=== PATIENT | female | born 1975 | race Caucasian/White ===

== ENCOUNTER → 2017-06-08 12:00 | Outpatient (CLI) | payer OTHER, SELFPAY ==
[2017-06-08 13:06] LABS: Anion Gap 10 (5-15); BUN 12 mg/dL (7-18); BUN/Creat Ratio 15.4 RATIO (10-20); Calcium,Total 8.5 mg/dL (8.5-10.1); Chloride 106 mmol/L (98-107); Creatinine, Serum 0.78 mg/dL (0.55-1.02); EST Glomerular Filtration Rate 86 mL/min (>60); Est Glom Filt Rate - Afr Amer 104 mL/min (>60); Glucose 103 mg/dL (74-106); Magnesium 2.2 mg/dL (1.6-2.6); Potassium 3.6 mmol/L (3.5-5.1); Sodium Level 141 mmol/L (136-145); T4 Free Direct 1.13 ng/dL (0.76-1.46); Thyroid Stim Hormone (TSH) 0.77 uIU/mL (0.358-3.74)
[2017-06-09 08:51] LABS: Vitamin B12 315 pg/mL (211-911)
== END ==
PROVIDERS: Family Provider Family Medicine; PCP Family Medicine; Visit Provider Family Medicine
DX: R11.0 Nausea (principal); R20.2 Paresthesia of skin
CPT/HCPCS: 36415; 80048; 82607; 83735; 84439; 84443

== ENCOUNTER 2018-11-28 18:07 | Emergency (ER) | payer OTHER, SELFPAY ==
[2018-10-19 09:17] VITALS: BMI 38.2
[2018-11-28 18:08] VITALS: BP 133/74; PULSE 87; RESP 16; TEMP 36.6; O2SAT 98; BMI 41.9
--- NOTE | 2018-11-28 18:19 | EKG12_ITS ---
Test Reason : PALPITATIONS Blood Pressure : / mmHG Vent. Rate : 073 BPM Atrial Rate : 073 BPM P-R Int : 120 ms QRS Dur : 090 ms QT Int : 416 ms P-R-T Axes : 048 042 024 degrees QTc Int : 458 ms Normal sinus rhythm Normal ECG Confirmed by FIDEL KHAN, BIN ([id number]), hydroelectric station chief GENA CRUZ ([id number]) on 11/30/2018 11:56:13 AM Referred By: ORTIZ Confirmed By:BIN PARRA MD
--- NOTE | 2018-11-28 18:20 | ED.VIS.GEN ---
History of Present Illness Chief Complaint: Palpitations Informant: Patient Onset: Days Context: Gradual Onset Timing: Intermittent Current Severity: Moderate Maximum Severity: Moderate Narrative: The patient presents to the emergency department with intermittent sensation of palpitations. States is been going on since . She states she will get these symptoms where she felt like her heart is skipping a beat. She states that on last seconds. She denies any constant chest pain. It is nonradiating. Patient has been in her normal state of health. 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 She has no history of coronary vascular disease. She is on no medications. She states that she did have symptoms like this over the summer and they resolved. Prior similar symptoms: No Recent Illness/Hospitalization: No Past Medical History - Allergies and Home Meds Allergies/Adverse Reactions: Allergies acetaminophen [From Vicodin] Adverse Reaction (Verified 11/28/18 18:11) Vomiting hydrocodone bitartrate [From Vicodin] Adverse Reaction (Verified 11/28/18 18:11) Vomiting Primary Care Physician: Florian Colbert MD [Primary Care Provider] - Prior records reviewed: Yes Past Medical History: None Lives: With Family Smoking Status: Never smoker Review of Systems General: Denies: Chills, Fever, Sweats Eyes: Denies: Visual changes - bilaterally, Diplopia ENT: Denies: Rhinorrhea, Sore throat Cardiovascular: Reports: Palpitations Respiratory: Denies: Dyspnea, Cough, Dyspnea on exertion Gastrointestinal: Denies: Abdominal pain, Nausea, Vomiting, Diarrhea, Melena, Hematochezia Genitourinary: Denies: Dysuria, Hematuria, Frequency Musculoskeletal: Denies: Back pain, Extremity Pain Skin: Denies: Rash, Wounds Neurological: Denies: Headache, Weakness, Numbness Physical Exam Vital Signs/Narrative: Vital Signs Temp Pulse Resp BP Pulse Ox 11/28/18 18:08 97.9 F 87 16 133/74 H 98 Inital Vital Signs reviewed: Yes General: Well nourished, Well developed, No Acute Distress Head: Normocephalic, Atraumatic Eyes: Perrl, EOMI ENT: Moist mucous membranes, No rhinorrhea Neck: Supple, Nontender Cardiovascular: Regular rate, Regular rhythm, No murmurs Respiratory: No distress, CTA bilaterally, Chest nontender Abdomen: Soft, Nontender, Nondistended, Normal bowel sounds Back: Nontender, Normal Inspection Extremities: Nontender, No edema Skin: Normal color, No rash Neurological: Alert, Oriented x3, Cranial nerves II-XII grossly intact, Normal Strength, Normal Sensation Psychological: Normal affect, Normal Mood Diagnostic/Tx/Re-eval Chest X-Ray - ED: 2 View, Read by ED Physician, Normal, Heart, Lungs Clinical Impression(s) from Imaging Studies Chest X-Ray 11/28/18 18:45 IMPRESSION: No acute thoracic pathology. Electronically Signed: Layo Lundberg, at 18:53 EDT Tel , Service support , Abnormal Lab Results 11/28/18 11/28/18 18:35 18:35 WBC 10.5 RBC 4.51 Hgb 13.1 Hct 39.8 MCV 88.2 MCH 29.0 MCHC 32.9 RDW Std Deviation 42.7 RDW Coeff of Bebeto 13.2 Plt Count 264 MPV 10.0 Immature Gran % (Auto) 0.400 Neut % (Auto) 55.3 Lymph % (Auto) 35.1 Titus % (Auto) 6.1 Eos % (Auto) 2.4 Baso % (Auto) 0.7 Absolute Neuts (auto) 5.8 Absolute Lymphs (auto) 3.67 Nucleated RBC % 0 Sodium 138 Potassium 4.5 Chloride 107 Carbon Dioxide 26.0 Anion Gap 5 BUN 16 Creatinine 0.95 Estim Creat Clear Calc 60.39 Est GFR (MDRD) Af Amer 82 Est GFR (MDRD) Non-Af 68 BUN/Creatinine Ratio 16.8 Glucose 116 H Calcium 8.7 Troponin I < 0.015 - Rhythm Strip Rhythm Strip: Sinus Rhythm Rate: 80 Ectopy: None - EKG Initial EKG Interpretation: Sinus Rhythm, No Acute Injury Pattern Prior: No Prior - Medical Decision Making EKG was done on patient arrival. There is no acute ischemic change. There is normal axis and intervals. My suspicion is that the patient is likely having symptomatic PVCs. She was kept on a heart monitor and had no arrhythmia. Metabolic work-up was pursued and was unremarkable. Her cardiac enzymes are normal. At this point, the patient has no significant history of coronary vascular disease or other risk factor. She has a normal cardiac work-up. I do feel that she is safe for outpatient therapy. She is PE RC negative. I will give her outpatient cardiology follow-up as needed. She was counseled on concerning symptoms and reasons to return. The patient will be discharged home. Impression 1. Palpitations ED Disposition - Plan for ED Patient: Instructions: Premature Ventricular Contractions Referrals: Alberto Anne MD [STAFF PHYSICIAN] -
[2018-11-28] MEDS: Aspirin 81 MG TAB.CHEW 324 MG PO (18:34)
--- NOTE | 2018-11-28 18:45 | RAD_ITS ---
STUDY: X-RAY CHEST REASON FOR EXAM: Female, 43 years old. Chest pain TECHNIQUE: Frontal view of the chest COMPARISON: None. FINDINGS: The lungs are clear. There are no pleural effusions. There is no pneumothorax. The heart is normal in size. The visualized osseous structures are within normal limits. RAD/Chest 1 View (Portable) IMPRESSION: No acute thoracic pathology. Electronically Signed: Layo Lundberg, at 18:53 EDT Tel , Service support ,
[2018-11-28 18:50] LABS: Absolute Lymphocyte Count 3.67 X10^3/uL (0.83-4.51); Absolute Neutrophil Count 5.8 X10^3/uL (2.0-7.7); Basophil# 0.07 X10^3/uL; Basophil% 0.7 % (0-1); Eosinophil# 0.25 X10^3/uL; Eosinophils% 2.4 % (0-5); Hematocrit 39.8 % (37-47); Hemoglobin 13.1 g/dL (12.0-15.0); Lymphocyte # 3.67 X10^3/ul (4.0); Lymphocyte % 35.1 % (19-41); Mean Corp Hgb Conc 32.9 g/dL (32-36); Mean Corpuscular Volume 88.2 fL (81-99); Monocyte# 0.64 X10^3/uL; Monocyte% 6.1 % (0-10); NRBC Flagged by Analyzer 0 % (0-5); Neutrophil % 55.3 % (47-70); Platelet Count 264 K/mm3 (150-450); RBC Distribution Width CV 13.2 % (11.6-14.6); RBC Distribution Width SD 42.7 fl (35.1-43.9); Red Blood Count 4.51 M/mm3 (4.2-5.4); White Blood Count 10.5 K/mm3 (4.4-11.0)
[2018-11-28 19:08] LABS: Anion Gap 5 (5-15); BUN 16 mg/dL (7-18); BUN/Creat Ratio 16.8 RATIO (10-20); Calcium,Total 8.7 mg/dL (8.5-10.1); Chloride 107 mmol/L (98-107); Creatinine, Serum 0.95 mg/dL (0.55-1.02); EST Glomerular Filtration Rate 68 mL/min (>60); Est Glom Filt Rate - Afr Amer 82 mL/min (>60); Estimated Creatinine Clearance 60.39 ml/min; Glucose 116 mg/dL (74-106); Potassium 4.5 mmol/L (3.5-5.1); Sodium Level 138 mmol/L (136-145)
[2018-11-28 19:21] VITALS: BP 128/75; PULSE 81; RESP 14; O2SAT 95
== END 2018-11-28 19:25 | disposition home or self-care (01) ==
LOC: ED 18:45
PROVIDERS: Emergency Provider Emergency Medicine; Family Provider Family Medicine; PCP Family Medicine
DX: I49.3 Ventricular premature depolarization (principal); Z88.5 Allergy status to narcotic agent
CPT/HCPCS: 71045; 80048; 84484; 85025; 93005; 99285

== ENCOUNTER → 2019-11-07 08:49 | Outpatient (CLI) | payer OTHER, SELFPAY ==
[2019-11-07 08:13] VITALS: BMI 40.4
[2019-11-07 12:25] LABS: Absolute Lymphocyte Count 2.71 X10^3/uL (0.83-4.51); Absolute Neutrophil Count 4.4 X10^3/uL (2.0-7.7); Basophil# 0.07 X10^3/uL; Basophil% 0.9 % (0-1); Eosinophil# 0.23 X10^3/uL; Eosinophils% 2.9 % (0-5); Hemoglobin 13.5 g/dL (12.0-15.0); Lymphocyte # 2.71 X10^3/ul (4.0); Lymphocyte % 34.5 % (19-41); Mean Corp Hgb Conc 32.1 g/dL (32-36); Mean Corpuscular Hgb 28.8 pg (27.0-32.0); Mean Corpuscular Volume 89.7 fL (81-99); Mean Platelet Vol. 10.7 fl (6.2-12.0); Monocyte# 0.47 X10^3/uL; NRBC Flagged by Analyzer 0 % (0-5); Neutrophil # 4.35 X10^3/uL (2.7-7.7); Neutrophil % 55.4 % (47-70); Platelet Count 275 K/mm3 (150-450); RBC Distribution Width CV 13.5 % (11.6-14.6); Red Blood Count 4.68 M/mm3 (4.2-5.4); White Blood Count 7.9 K/mm3 (4.4-11.0)
[2019-11-07 12:50] LABS: AST(SGOT) 11 U/L (15-37); Alanine Aminotransfer ALT/SGPT 19 U/L (13-56); Albumin, Serum 3.9 g/dL (3.2-5.0); Alkaline Phosphatase 47 U/L (45-117); Anion Gap 7 (5-15); BUN 14 mg/dL (7-18); BUN/Creat Ratio 15.8 RATIO (10-20); Calcium,Total 8.7 mg/dL (8.5-10.1); Chloride 107 mmol/L (98-107); Cholesterol 163 mg/dL (200); Creatinine, Serum 0.89 mg/dL (0.55-1.02); EST Glomerular Filtration Rate 73 mL/min (>60); Est Glom Filt Rate - Afr Amer 89 mL/min (>60); Globulin 3.8 g/dL (2.2-4.2); Glucose 107 mg/dL (74-106); High Density Lipoprotein 37 mg/dL; Protein, Total 7.7 g/dL (6.4-8.2); Sodium Level 138 mmol/L (136-145); T4 Free Direct 1.09 ng/dL (0.76-1.46); Thyroid Stim Hormone (TSH) 1.71 uIU/mL (0.358-3.74); Triglycerides 218 mg/dL; Very Low Density Lipoprotein 44 mg/dL (5-40)
== END ==
PROVIDERS: PCP Internal Medicine; Referring Provider Internal Medicine; Visit Provider Internal Medicine
DX: K58.0 Irritable bowel syndrome with diarrhea (principal); E66.01 Morbid (severe) obesity due to excess calories; Z68.41 Body mass index [BMI] 40.0-44.9, adult
CPT/HCPCS: 36415; 80053; 80061; 84439; 84443; 85025

== ENCOUNTER → 2020-01-30 10:48 | Outpatient (CLI) | payer OTHER, SELFPAY ==
[2019-11-07 08:13] VITALS: BMI 40.4
== END ==
PROVIDERS: PCP Internal Medicine; Referring Provider Nurse Practitioner Family; Visit Provider Nurse Practitioner Family
DX: Z20.828 Contact with and (suspected) exposure to other viral communicable diseases (principal)
CPT/HCPCS: 87635; C9803; U0003

== ENCOUNTER 2021-05-19 15:40 | Outpatient (CLI) | payer OTHER, SELFPAY ==
[2021-05-19 16:42] LABS: Absolute Lymphocyte Count 3.26 X10^3/uL (0.83-4.51); Absolute Neutrophil Count 4.8 X10^3/uL (2.0-7.7); Basophil# 0.08 X10^3/uL; Basophil% 0.9 % (0-1); Eosinophil# 0.18 X10^3/uL; Hematocrit 39.2 % (37-47); Hemoglobin 12.7 g/dL (12.0-15.0); Lymphocyte # 3.26 X10^3/ul (0.83-4.51); Mean Corp Hgb Conc 32.4 g/dL (32-36); Mean Corpuscular Volume 86.3 fL (81-99); Mean Platelet Vol. 10.4 fl (6.2-12.0); Monocyte# 0.48 X10^3/uL; Monocyte% 5.5 % (0-10); NRBC Flagged by Analyzer 0 % (0-5); Neutrophil # 4.78 X10^3/uL (2.7-7.7); Neutrophil % 54.4 % (47-70); Platelet Count 302 K/mm3 (150-450); RBC Distribution Width CV 13.8 % (11.6-14.6); RBC Distribution Width SD 43.4 fl (35.1-43.9); Red Blood Count 4.54 M/mm3 (4.2-5.4); White Blood Count 8.8 K/mm3 (4.4-11.0)
[2021-05-19 17:02] LABS: ALB/GLOB Ratio 1.1 RATIO (0.9-2.4); AST(SGOT) 15 U/L (15-37); Alanine Aminotransfer ALT/SGPT 18 U/L (13-56); Albumin, Serum 3.8 g/dL (3.2-5.0); Alkaline Phosphatase 52 U/L (45-117); Anion Gap 4 (5-15); BUN 15 mg/dL (7-18); BUN/Creat Ratio 16.9 RATIO (10-20); Calcium,Total 8.4 mg/dL (8.5-10.1); Chloride 110 mmol/L (98-107); Cholesterol 167 mg/dL (200); Creatinine, Serum 0.89 mg/dL (0.55-1.02); EST Glomerular Filtration Rate 73 mL/min (>60); Est Glom Filt Rate - Afr Amer 88 mL/min (>60); Globulin 3.6 g/dL (2.2-4.2); Glucose 93 mg/dL (74-106); High Density Lipoprotein 44 mg/dL; Potassium 3.9 mmol/L (3.5-5.1); Protein, Total 7.4 g/dL (6.4-8.2); Sodium Level 139 mmol/L (136-145); Thyroid Stim Hormone (TSH) 0.83 uIU/mL (0.358-3.74); Triglycerides 216 mg/dL; Very Low Density Lipoprotein 43 mg/dL (5-40)
== END 2021-05-19 23:59 | disposition home or self-care (01) ==
LOC: BIMLAB 15:41
PROVIDERS: PCP Internal Medicine; Referring Provider Physician Assistant; Visit Provider Physician Assistant
DX: Z00.00 Encounter for general adult medical examination without abnormal findings (principal); K21.9 Gastro-esophageal reflux disease without esophagitis; F41.9 Anxiety disorder, unspecified; Z13.220 Encounter for screening for lipoid disorders; Z13.29 Encounter for screening for other suspected endocrine disorder
CPT/HCPCS: 36415; 80053; 80061; 84443; 85025

== ENCOUNTER 2021-06-03 09:02 | Outpatient (CLI) | payer OTHER, SELFPAY ==
[2021-06-09 12:22] LABS: HPV APTIMA, High Risk Negative (Negative)
== END 2021-06-03 23:59 | disposition home or self-care (01) ==
LOC: LABSPEC 06-04 09:03
PROVIDERS: PCP Internal Medicine; Visit Provider Nurse Practitioner Women's Health
DX: Z12.4 Encounter for screening for malignant neoplasm of cervix (principal)
CPT/HCPCS: 87624; 88175; G0145

== ENCOUNTER → 2021-09-10 | Outpatient (CLI) | payer OTHER, SELFPAY ==
--- NOTE | 2021-09-10 12:20 | BI_ITS ---
MAMMOGRAPHY - BILATERAL SCREENING REASON FOR EXAM: Female, 46 years old. Routine annual screening examination. PERTINENT HISTORY: Non-contributory. TECHNIQUE: Digital bilateral breast bhargav (3D mammographic acquisition) in the CC and MLO projections. 2-D mediolateral oblique (MLO) and craniocaudad (CC) views of both breasts were obtained. CAD: Full Field Digital Mammography with Computer Added Detection was performed. COMPARISON: Comparison is made with prior examination dated 08/07/2016. FINDINGS: Breast Composition: The breasts are heterogeneously dense, which may obscure small masses. There are no dominant masses or suspicious calcifications. Stable small benign-appearing bilateral axillary lymph nodes. No other significant abnormalities are identified. There has been no significant change since the prior study. BI/SCRN MAMM (CAD)W/BHARGAV BILAT IMPRESSION: Stable bilateral screening mammogram. Yearly follow-up mammogram recommended. (A) ASSESSMENT CATEGORY: BIRADS Category 2: Benign. A letter regarding these results will be sent to the patient by the facility within 30 days. Approximately 10% of breast cancers are not detected by mammography. A normal mammogram should not delay biopsy of a clinically suspicious abnormality. [id number] Electronically Signed: Jaret Dumont MD at 13:24 EDT ,
== END | disposition home or self-care (01) ==
LOC: OPBI 12:18
PROVIDERS: PCP Internal Medicine; Referring Provider Nurse Practitioner Women's Health; Visit Provider Nurse Practitioner Women's Health
DX: Z12.31 Encounter for screening mammogram for malignant neoplasm of breast (principal)
CPT/HCPCS: 77063; 77067

== ENCOUNTER → 2023-02-19 | Outpatient (CLI) | payer OTHER, SELFPAY ==
--- NOTE | 2023-02-19 14:54 | BI_ITS ---
MAMMOGRAPHY - BILATERAL SCREENING 3-D TOMOSYNTHESIS REASON FOR EXAM: Female, 47 years old. Breast Cancer Screening PERTINENT HISTORY: No significant family history. TECHNIQUE: 2-D mammograms and 3-D Tomosynthesis of the breast (s) were performed. CAD was performed. COMPARISON: 09/10/2021 FINDINGS: The breast composition is heterogeneously dense that can obscure small breast masses. Scattered benign calcifications are seen. No dense spiculated masses or suspicious microcalcifications are identified. No architectural distortion is identified. There is no skin thickening or retraction. There has been no significant change since the prior study. BI/SCRN MAMM (CAD)W/BHARGAV BILAT IMPRESSION: No mammographic signs of malignancy. Routine yearly mammograms recommended. ASSESSMENT CATEGORY: BIRADS Category 1: Negative. A letter regarding these results will be sent to the patient by the facility within 30 days. FOLLOW UP RECOMMENDATION: Yearly follow up mammogram recommended. (A) Approximately 10% of breast cancers are not detected by mammography. A normal mammogram should not delay biopsy of a clinically suspicious abnormality. Electronically Signed: Rj Orozco MD at 9:01 EST ,
== END | disposition home or self-care (01) ==
LOC: OPBI 14:53
PROVIDERS: PCP Internal Medicine; Referring Provider Internal Medicine; Visit Provider Internal Medicine
DX: Z12.31 Encounter for screening mammogram for malignant neoplasm of breast (principal)
CPT/HCPCS: 77063; 77067

== ENCOUNTER 2023-03-25 08:59 | Day surgery (SDC) | payer OTHER, SELFPAY ==
[2023-03-25] MEDS: Lactated Ringers 1,000 ML 15 ML IV (09:31)
[2023-03-25 09:33] VITALS: BP 129/70; PULSE 78; RESP 18; TEMP 36.1; O2SAT 96; BMI 41.5
--- NOTE | 2023-03-25 10:43 | PCM.HP.STD ---
HPI - General General Date of Admission: 03/25/23 Date of Service: 03/25/23 Chief Complaint: Screening colonoscopy HPI Narrative WANDA HERNANDEZ, is a 47 F who presents today for screening colonoscopy. She is not having abdominal pain. She denied any cramping. She denied of any chest pain or shortness of breath. Overall she is in very good health. [facility], [facility] Medical History (Updated 03/23/23 @ 14:49 by Kaia Kulkarni) Back pain Daigle's palsy Chest pain Chronic diarrhea Colon cancer screening Diarrhea Difficulty balancing Family hx of colon cancer Gastric reflux Gastroenteritis due to food toxin Gestational diabetes Hay fever Health care maintenance Heartburn History of IBS Hypertension IBS (irritable bowel syndrome) Migraines Non-smoker Palpitation Skin mole Viral syndrome Wears glasses Home Medications loperamide 2 mg capsule (Imodium A-D) 2 mg PO Q6H PRN loose stool 11/07/19 [History Last Taken Unknown] blood pressure monitor #1 ea 05/19/21 [Rx Last Taken Unknown] hydroxyzine HCl 50 mg tablet 50 mg PO Q8H PRN anxiety #30 tabs 05/08/22 [Rx Last Taken Unknown] rizatriptan 10 mg tablet See Rx Instructions PO .COMPLEX #14 tabs 01/07/23 [Rx Last Taken Unknown] Allergy/AdvReac Type Severity Reaction Status Date / Time acetaminophen [From Vicodin] AdvReac Vomiting Verified 01/14/23 11:33 hydrocodone bitartrate AdvReac Vomiting Verified 01/14/23 11:33 [From Vicodin] Family History (Updated 01/14/23 @ 11:33 by Akiko Olivas) Grandfather Colon cancer, Onset Age: 80 Grandmother Cancer ovarian Father Diabetes Surgical History (Updated 01/14/23 @ 11:32 by Akiko Olivas) History of cholecystectomy Hx of section Hx of colonoscopy Social History household members: spouse, children and other details: Oldest Son - [place], [place] - 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, 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 [employer] number of children: 3 current occupational status: employed current occupation: [employer] Smoking Status: Never smoker alcohol intake: current alcohol intake frequency: holidays/special occasions only substance use type: does not use what type of physical activity do you participate in: none seatbelt use: always do you feel safe at home: Yes additional social history: - [employer] ROS Review of Systems ROS Unobtainable: other Constitutional Constitutional: Denies fatigue, fever(s), poor appetite, weight gain or weight loss ENT HEENT: Denies mouth lesions Cardiovascular Cardiovascular: Denies abdominal bloating, abdominal edema or abdominal pain Respiratory/Chest Respiratory/Chest: Denies change in mental status, change in phlegm color, chest congestion or chest tightness Gastrointestinal Gastrointestinal: Denies belching, bloating, change in bowel habits, change in stool character, chewing difficulty, coffee ground emesis, constipation, cramping, diarrhea, dyspepsia, dysphagia, early satiety, excessive flatus, fecal incontinence, heartburn, hematemesis, hematochezia, hemorrhoids, loose stools, melena, nausea, odynophagia, rectal bleeding, tenesmus, vomiting or weight changes Genitourinary Genitourinary: Denies abdominal discomfort, burning urination or itching Musculoskeletal Musculoskeletal: Reports as per HPI; Denies muscle weakness or myalgias Integumentary Integumentary: Denies jaundice Neurologic Neurologic: Denies lack of coordination or weakness Psychiatric Psychiatric: Denies confusion, depression, memory loss, mood swings, paranoia or suicidal ideation Endocrine Endocrinology: Denies systems reviewed and no addt'l complaints, except as documented Hematologic/Lymphatic Hematologic/Lymphatic: Denies anemia, easy bleeding, easy bruising or lymphadenopathy Allergic/Immunologic Allergic/Immunologic: Denies systems reviewed and no addt'l complaints, except as documented Vital Signs Vital Signs Vital Signs: 03/25/23 09:33 03/25/23 09:33 Temperature 97 F L Temperature Source Temporal Pulse Rate 78 Respiratory Rate 18 Respiratory Pattern Normal Blood Pressure 129/70 H Blood Pressure Mean 89 Blood Pressure Source Monitor Blood Pressure Position Semi-Fowlers Blood Pressure Location Right Arm Pulse Ox 96 Oxygen Delivery Method Room Air Weight Weight: 227 lb 6.4 oz Body Mass Index (BMI) 41.5 Physical Exam Const alert General Appearance: cooperative Orientation / Consciousness: oriented to person HEENT hearing grossly normal bilaterally Head and Scalp: normal to inspection Face and Sinus: face symmetric Nose: external nose normal Mouth: oral and palatal mucosa normal Eyes conjunctivae normal General Eye: normal appearance of both eyes Neck full ROM General: normal visual inspection Lymph Lymphatic: no lymphadenopathy noted Chest inspection of chest normal and palpation of chest normal Chest: symmetrical chest wall rise Resp normal respiratory effort Effort and Inspection: able to speak in complete sentences Cardio regular rate GI non-distended Percussion: normal to percussion Rectal Exam: deferred Neuro Speech: speech normal Gait (Neuro): normal gait Assessment & Plan Assessment/Plan (1) Encounter for screening for malignant neoplasm of colon: PLAN: She was explained alternatives, risk, benefits including not withstanding bleeding, infection, sepsis, perforation, need for emergent surgery and . She will have an ASA of 3.
[2023-03-25 11:05] VITALS: BP 113/62; BP 129/70; PULSE 71; RESP 16; TEMP 36.4; O2SAT 100
[2023-03-25 11:10] VITALS: BP 109/62; BP 129/70; PULSE 76; RESP 16; O2SAT 98
--- NOTE | 2023-03-25 11:12 | OP.CCLET_ITS ---
03/25/2023 Garfield Pearce MD [address] [place] [address] [place] [address] Re : Colonoscopy procedure for Matilde Vasquez Dear Dr. Pearce This procedure was performed on March. My impressions and recommendations are as follows: Impressions : - The entire examined colon is normal. - No specimens collected. Recommendations : - Discharge patient to home. - Resume previous diet. - Continue present medications. - Repeat colonoscopy in 10 years for screening purposes. My findings are described in the full procedure note, which is enclosed. If I can be of further assistance, please feel free to contact me at . Sincerely, Louie Vera, 03/25/2023 11:11:48 AM This report has been signed electronically.
--- NOTE | 2023-03-25 11:12 | OP.COLON_ITS ---
Patient Name: Matilde Vasquez Procedure Date: 03/25/2023 10:49 AM Date of : 1975 Age: 47 Procedure: Colonoscopy Indications: Screening for colorectal malignant neoplasm Providers: Louie Vera DO Referring MD: Louie Vera DO Medicines: Monitored Anesthesia Care Patient Profile: This is a 47 year old female. Refer to note in patient chart for documentation of history and physical. Last Colonoscopy: none. The patient's first colonoscopy is today. Complications: No immediate complications. Procedure: Pre-Anesthesia Assessment: - Prior to the procedure, a History and Physical was performed, and patient medications and allergies were reviewed. The patient is competent. The risks and benefits of the procedure and the sedation options and risks were discussed with the patient. All questions were answered and informed consent was obtained. Patient identification and proposed procedure were verified by the physician in the pre-procedure area. Mental Status Examination: alert and oriented. Airway Examination: normal oropharyngeal airway and neck mobility. Respiratory Examination: clear to auscultation. CV Examination: normal. Prophylactic Antibiotics: The patient does not require prophylactic antibiotics. Prior Anticoagulants: The patient has taken no anticoagulant or antiplatelet agents. ASA Grade Assessment: II - A patient with mild systemic disease. After reviewing the risks and benefits, the patient was deemed in satisfactory condition to undergo the procedure. The anesthesia plan was to use monitored anesthesia care (MAC). Immediately prior to administration of medications, the patient was re-assessed for adequacy to receive sedatives. The heart rate, respiratory rate, oxygen saturations, blood pressure, adequacy of pulmonary ventilation, and response to care were monitored throughout the procedure. The physical status of the patient was re-assessed after the procedure. After I obtained informed consent, the scope was passed under direct vision. Throughout the procedure, the patient's blood pressure, pulse, and oxygen saturations were monitored continuously. The Colonoscope was introduced through the anus and advanced to the cecum, identified by appendiceal orifice and ileocecal valve. The colonoscopy was performed without difficulty. The patient tolerated the procedure well. The quality of the bowel preparation was adequate. The ileocecal valve, appendiceal orifice, and rectum were photographed. Scope In: 10:49:55 AM Scope Withdrawal Time 0 hours 8 minutes 40 seconds Scope Out: 11:01:26 AM Total Procedure Duration Time 0 hours 11 minutes 31 seconds Findings: The perianal and digital rectal examinations were normal. The colon (entire examined portion) appeared normal. No additional abnormalities were found on retroflexion. Impression: - The entire examined colon is normal. - No specimens collected. Recommendation: - Discharge patient to home. - Resume previous diet. - Continue present medications. - Repeat colonoscopy in 10 years for screening purposes. Procedure Code(s): --- Professional --- G0121, Colorectal cancer screening; colonoscopy on individual not meeting criteria for high risk CPT copyright 2021 [employer]. All rights reserved. The codes documented in this report are preliminary and upon industrial safety and health manager review may be revised to meet current compliance requirements. Louie Vera DO 03/25/2023 11:11:48 AM This report has been signed electronically. Number of Addenda: 0 Note Initiated On: 03/25/2023 10:49 AM
[2023-03-25 11:15] VITALS: BP 111/64; BP 129/70; PULSE 71; RESP 166; O2SAT 98
[2023-03-25 11:20] VITALS: BP 114/66; BP 129/70; PULSE 64; RESP 16; TEMP 36.4; O2SAT 99
[2023-03-25 11:43] VITALS: BP 129/70
== END 2023-03-25 11:47 | disposition home or self-care (01) ==
LOC: EN 09:00 → AC 09:02
PROVIDERS: PCP Internal Medicine; Referring Provider Internal Medicine; Visit Provider Internal Medicine Gastroenterology
PROC: 0DJD8ZZ Inspection of Lower Intestinal Tract, Via Natural or Artificial Opening Endoscopic (ICD-10-PCS; CPT 45378; principal; 2023-03-25 10:10)
DX: Z12.11 Encounter for screening for malignant neoplasm of colon (principal); I10 Essential (primary) hypertension; K21.9 Gastro-esophageal reflux disease without esophagitis; Z90.49 Acquired absence of other specified parts of digestive tract; Z79.899 Other long term (current) drug therapy
CPT/HCPCS: 45378; J7120; J2405

== ENCOUNTER → 2023-07-15 | Outpatient (CLI) | payer OTHER, SELFPAY ==
[2023-07-15 16:44] LABS: Absolute Neutrophil Count 4.4 X10^3/uL (2.0-7.7); Basophil# 0.09 X10^3/uL; Basophil% 1.1 % (0-1); Eosinophil# 0.17 X10^3/uL; Hematocrit 39.6 % (37-47); Hemoglobin 12.8 g/dL (12.0-15.0); Lymphocyte % 37.9 % (19-41); Mean Corp Hgb Conc 32.3 g/dL (32-36); Mean Corpuscular Hgb 28.1 pg (27.0-32.0); Mean Platelet Vol. 10.2 fl (6.2-12.0); Monocyte# 0.56 X10^3/uL; Monocyte% 6.6 % (0-10); NRBC Flagged by Analyzer 0 % (0-5); Neutrophil % 52.2 % (47-70); Platelet Count 308 K/mm3 (150-450); RBC Distribution Width CV 13.7 % (11.6-14.6); RBC Distribution Width SD 43.4 fl (35.1-43.9); Red Blood Count 4.55 M/mm3 (4.2-5.4); White Blood Count 8.4 K/mm3 (4.4-11.0)
[2023-07-15 17:19] LABS: ALB/GLOB Ratio 1.1 RATIO (0.9-2.4); AST(SGOT) 21 U/L (15-37); Alanine Aminotransfer ALT/SGPT 27 U/L (13-56); Alkaline Phosphatase 47 U/L (45-117); Anion Gap 4 (5-15); BUN 13 mg/dL (7-18); BUN/Creat Ratio 12.7 RATIO (10-20); Calcium,Total 9.2 mg/dL (8.5-10.1); Chloride 106 mmol/L (98-107); Cholesterol 160 mg/dL (200); Creatinine, Serum 1.02 mg/dL (0.55-1.02); EST Glomerular Filtration Rate 61 mL/min (>60); Est Glom Filt Rate - Afr Amer 74 mL/min (>60); Globulin 3.7 g/dL (2.2-4.2); Glucose 92 mg/dL (74-106); High Density Lipoprotein 43 mg/dL; Potassium 4.3 mmol/L (3.5-5.1); Protein, Total 7.7 g/dL (6.4-8.2); Sodium Level 138 mmol/L (136-145); T4 Free Direct 1.13 ng/dL (0.76-1.46); Thyroid Stim Hormone (TSH) 0.54 uIU/mL (0.358-3.74); Triglycerides 182 mg/dL; Very Low Density Lipoprotein 36 mg/dL (5-40)
== END | disposition home or self-care (01) ==
LOC: BIMLAB 16:10
PROVIDERS: PCP Internal Medicine; Referring Provider Internal Medicine; Visit Provider Internal Medicine
DX: K52.9 Noninfective gastroenteritis and colitis, unspecified (principal); I10 Essential (primary) hypertension
CPT/HCPCS: 36415; 80053; 80061; 84439; 84443; 85025

== ENCOUNTER → 2023-07-19 | Outpatient (CLI) | payer OTHER, SELFPAY ==
[2023-07-24 19:07] LABS: Calprotectin, Stool 45 ug/g (0-120)
[2023-07-31 16:10] LABS: Pancreatic Elastase, Fecal 176 (>200)
== END | disposition home or self-care (01) ==
LOC: LABSPEC 15:04
PROVIDERS: PCP Internal Medicine; Referring Provider Internal Medicine; Visit Provider Internal Medicine
DX: K52.9 Noninfective gastroenteritis and colitis, unspecified (principal)
CPT/HCPCS: 82653; 83630; 83993

== ENCOUNTER → 2024-10-30 | Outpatient (CLI) | payer OTHER, SELFPAY ==
--- OUTSIDE RECORDS SUMMARY | 2024-10-30 11:20 | XMS RPT_ITS | CCD ---
Author Organization [facility] Care Team Providers Care Labor Expediter Name Role Phone Dr. Garfield Pearce Primary Care Provider 1([phone]) Dr. Garfield Pearce Referring Provider [phone])2 SALEEM Marshall Attending Provider Unavailab Dr. Garfield Mosquera Attending Provider [phone])2 Abelino HOWELL, NAZANIN Zavala Attending Provider 1(330 ) Garfield Pearce MD Primary Care Provider 1(3 [phone]) GARFIELD PEARCE Primary Care Unavailable BIN ACEVEDO Referring Unavailable GARFIELD PEARCE Primary Care Unavailable Dr. Garfield Pearce Primary Care Provider 1(33 0) Dr. Garfield Pearce Attending Provider [phone])2 Dr. Garfield Pearce Referring Provider [phone])2 Akiko Olivas Attending Provider Unavailable Dr. Louie Vera Attending Provider 1(330) Dr. Louie Vera Other Provider 1(330)- Dr. Garfield Pearce Primary Care Provider 1(33 0) Dr. Garfield Pearce Referring Provider 1(330)2 Dr. Louie Vera Attending Provider 1(330) Dr. Louie Vera Other Provider 1(330)- Dr. Garfield Pearce Attending Provider 1(330)2 Dr. Garfield Pearce Primary Care Provider 1(33 0) Dr. Garfield Pearce Referring Provider 1(330)2 Oleghe, Efewongbe Referring Unavailable Oleghe, Efewongbe Primary Care Unavailable Rosalva Casas Attending Unavailable Oleghe, Efewongbe Attending Unavailable Oleghe, Efewongbe Referring Unavailable Oleghe, Efewongbe Primary Care Unavailable Oleghe, Efewongbe Primary Care Unavailable Oleghe, Efewongbe Referring Unavailable YandelitzNichelle Attending Unavailable Oleghe, Efewongbe Referring Unavailable Oleghe, Efewongbe Primary Care Unavailable Rosalva Casas Attending Unavailable Portia KHAN, Dr. Merrill Primary Care Provider Portia KHAN, Dr. Merrill Referring Provider 1(33 0) Rosalva Rebolledo Attending Provider Portia KHAN, Dr. Merrill Attending Provider 1(33 0) Allergies Allergy Classification Reported Allergen(s) Allergy Type Date of Onset Reaction(s) Facility (6 sources) Acetaminophen Drug Allergy 09-08-2021 [facility] (7 sources) HYDROcodone; Translations: [hydrocodone bitartrate] Drug Allergy 09-08-2021 [facility] (1 source) Acetaminophen Drug Allergy 08-02-2024 [facility] Medications Current Medications Medication Drug Class(es) Dates Sig (Normalized) Sig (Original) Blood Pressure Monitor (5 sources) Start: 05-19-2021 Blood Pressure Monitor Active 0 .ROUTE .MEDSUPPLY May 19, 2021 4:36pm Check twice a day Start: 05-19-2021 Blood Pressure Monitor Active 0 .ROUTE .MEDSUPPLY 1 May 19, 2021 1:00am Check twice a day Start: 05-19-2021 Blood Pressure Monitor Active 0 .ROUTE .MEDSUPPLY 1 May 19, 2021 12:00am Check twice a day Blood Pressure Monitor kit (1 source) Start: 05-19-2021 Blood Pressure Monitor kit Active 0 .ROUTE .MEDSUPPLY 1 May 19, 2021 1:00am elevated blood pressure Check twice a day sulfamethoxazole 800 mg / trimethoprim 160 mg oral tablet (1 source) Dihydrofolate Reductase Inhibitor Antibacterial, Sulfonamide Antimicrobial Start: 07-26-2022 End: 07-31-2022 take 1 tablet by mouth twice daily sulfamethoxazole -trimethoprim (BACTRIM DS) 800-160 mg per tablet Take 1 tablet by mouth twice daily for 5 days. 10 tablet 0 07/26/2022 07/31/2022 Active Comment on above: Take 1 tablet by shon twice daily for 5 days. SUMAtriptan 100 mg oral tablet (20 sources) Serotonin-1b and Serotonin-1d Receptor Agonist Start: 04-02-2023 End: 02-23-2024 take 1 tablet by mouth every two hours Sumatriptan Succinate (Imitrex) 100 mg tablet Active 0 PO .COMPLEX 14 February 23, 2024 4:59pm take 1 tab at onset of headache; if no relief, may repeat 1 tab after at least 2 hrs; max = 2 tabs/24 hrs PO Start: 01-07-2023 End: 01-07-2023 Sumatriptan Succinate 100 mg tablet Discontinued mg PO January 07, 2023 12:00am January 07, 2023 3:15pm Start: 01-07-2023 End: 01-07-2023 Sumatriptan Succinate Discon tinued MG PO January 07, 2023 12:00am January 07, 2023 3:15pm Start: 11-07-2019 End: 03-24-2022 take 1 tablet by mouth every two hours Sumatriptan Succinate 100 mg tablet Discontinued 0 PO .COMPLEX 10 November 15, 2020 9:02am May 19, 2021 4:35pm take 1 tab at onset of headache; if no relief, may repeat 1 tab after at least 2 hrs; max = 2 tabs/24 hrs PO Tirzepatide (Weight Loss) (2 sources) Start: 10-30-2024 Tirzepatide (W eight Loss) (Zepbound) 2.5 mg/0.5 mL pen injector Active 2.5 mg SC EVERY WEEK 2 October 30, 2024 12:00am for 4 weeks Start: 11-04-2023 End: 02-23-2024 Tirzepatide (Weight Loss) (Z epbound) 2.5 mg/0.5 mL pen injector Discontinued 2.5 mg SC EVERY WEEK 2 November 04, 2023 12:00am February 23, 2024 4:41pm for 4 weeks Completed/Discontinued Medications Medication Drug Class(es) Dates Sig (Normalized) Sig (Original) acetaminophen 325 mg / oxyCODONE hydrochloride 5 mg oral tablet (6 sources) Opioid Agonist Start: 05-04-2014 End: 12-03-2017 Oxycodone-Acetamino phen 1 TABLET tablet Discontinued 1 - 2 {tbl} PO EVERY 6 HOURS NEEDED as needed for Pain May 04, 2014 1:00am December 03, 2017 3:37pm Start: 05-04-2014 End: 12-03-2017 take 1 tablet by mouth every six hours as needed Oxycodone-Acetaminophen Discontinued 1 - 2 TABLET PO EVERY 6 HOURS NEEDED May 04, 2014 1:00am December 03, 2017 3:37pm amoxicillin 875 mg / clavulanate 125 mg oral tablet (6 sources) Penicillin-class Antibacterial Start: 12-03-2017 End: 12-13-2017 Amoxicillin-Pot Clavulanate (Augmentin) 875-125 mg tablet Discontinued 1 {tbl} PO Q12H 20 10 0 December 03, 2017 12:00am December 12, 2017 12:00am December 13, 2017 12:08am Acute sinusitis, unspecified fexofenadine hydrochloride 180 mg oral tablet (6 sources) Histamine-1 Receptor Antagonist Start: 11-07-2019 End: 06-03-2021 take 1 tablet by mouth once daily Fexofenadine (Renuka Allergy) 180 mg tablet Discontinued 180 mg PO DAILY November 07, 2019 12:00am June 03, 2021 3:24pm hydrOXYzine hydrochloride 25 mg oral tablet (17 sources) Antihistamine Start: 02-23-2024 End: 04-19-2024 take 1 tablet by mouth every eight hours as needed for anxiety Hydroxyzine Hcl 25 mg tablet Discontinued 25 mg PO Q8H as needed for anxiety 90 0 February 23, 2024 5:00pm April 19, 2024 9:52am Start: 03-10-2021 End: 02-23-2024 take 1 tablet by mouth every eight hours as needed for anxiety Hydroxyzine Hcl 50 mg tablet Discontinued 50 mg PO Q8H as needed for anxiety 30 0 May 08, 2022 2:59pm February 23, 2024 5:00pm loperamide hydrochloride 2 mg oral capsule (6 sources) Opioid Agonist Start: 11-07-2019 End: 08-02-2024 take 1 capsule by mouth every six hours as needed Loperamide (Imodium A-D) 2 mg capsule Discontinued 2 mg PO EVERY 6 HOURS as needed for loose stool November 07, 2019 12:00am August 02, 2024 8:39am omeprazole 40 mg delayed release oral capsule (3 sources) Proton Pump Inhibitor Start: 04-15-2023 End: 02-23-2024 take 1 capsule by mouth once daily 30 minutes before breakfast Omeprazole 40 mg capsule,delayed release(DR/EC) Discontinued 40 mg PO DAILY 90 April 15, 2023 1:00am February 23, 2024 4:41pm Take 30 minutes before breakfast phenazopyridine hydrochloride 200 mg oral tablet (2 sources) Start: 07-26-2022 take 1 tablet by mouth every eight hours as needed phenazopyridine (PYRIDIUM) 200 mg tablet Take 1 tablet by mouth three times daily as needed. 6 tablet 0 07/26/2022 Active Comment on above: Take 1 tablet by shon three times daily as needed. predniSONE 50 mg oral tablet (6 sources) Start: 05-29-2021 End: 06-03-2021 take 1 tablet by mouth once daily Prednisone 50 mg tablet Discontinued 50 mg PO DAILY 5 May 29, 2021 1:00am June 03, 2021 3:24pm rizatriptan 10 mg oral tablet (5 sources) Serotonin-1b and Serotonin-1d Receptor Agonist Start: 01-07-2023 End: 04-02-2023 take 1 tablet by mouth every two hours Rizatriptan 10 mg tablet Discontinued 0 PO .COMPLEX 14 2 January 07, 2023 12:00am April 02, 2023 1:09pm take 1 tab at onset of headache; if no relief may repeat 1 tab after at least 2 hrs; max = 3 tabs/24 hr PO ubrogepant 50 mg oral tablet (5 sources) Start: 03-24-2022 End: 01-07-2023 take 1 tablet by mouth once as needed for headache Ubrogepant (Ubrelvy) 50 mg tablet Discontinued 50 mg PO ONCE as needed for migraine headache 10 3 March 24, 2022 1:00am January 07, 2023 2:47pm as a single dose; may repeat once in >=2 hours after first dose if needed Problems Problem Classification Problem Date Documented Da te Episodic/Chronic Abdominal pain (1 source) Left flank pain; Translations: [Unspecified abdominal pain] Episodic Anxiety disorders (16 sources) Anxiety; Translations: [Anxiety disorder, unspecified] Chronic Cardiac dysrhythmias (9 sources) Palpitations; Translations: [Palpitations] 01-07-2023 Episodic Esophageal disorders (7 sources) Gastroesophageal reflux disease; Translations: [Gastro-esophageal reflux disease without esophagitis] 07-15-2023 Chronic Essential hypertension (9 sources) Hypertensive disorder; Translations: [Essential (primary) hypertension] 01-07-2023 Chronic Genitourinary symptoms and ill-defined conditions (2 sources) Urinary symptoms ; Translations: [Unspecified symptoms and signs involving the genitourinary system] Onset: Episodic Headache; including migraine (12 sources) Migraine; Translations: [Migraine, unspecified, not intractable, without status migrainosus] Chronic Immunizations and screening for infectious disease (1 source) Needs influenza immunization; Translations: [Encounter for immunization] 02-23-2024 Episodic Noninfectious gastroenteritis (9 sources) Chronic diarrhea; Translations: [Noninfective gastroenteritis and colitis, unspecified] 01-07-2023 Episodic Other and unspecified benign neoplasm (5 sources) Pigmented skin lesion ; Translations: [Melanocytic nevi, unspecified] 01-07-2023 Episodic Other and unspecified benign neoplasm (4 sources) Melanocytic nevi, unspecified; Translations: [Benign neoplasm of skin, site unspecified] 01-07-2023 Episodic Other female genital disorders (2 sources) Labial cyst; Translations: [Vulvar cyst] 08-02-2024 Episodic Comment on above: simple Other gastrointestinal disorders (6 sources) Irritable bowel syndrome with diarrhea; Translations: [Irritable bowel syndrome with diarrhea] 11-07-2019 Chronic Other gastrointestinal disorders (2 sources) Irritable bowel syndrome with diarrhea; Translations: [Irritable bowel syndrome] 04-15-2023 Chronic Other gastrointestinal disorders (5 sources) Food-borne gastroenteritis; Translations: [Toxic gastroenteritis and colitis] 06-08-2022 Episodic Other nervous system disorders (6 sources) Daigle's palsy; Translations: [Daigle's palsy] 05-29-2021 Episodic Other nervous system disorders (1 source) Daigle's palsy; Translations: [Daigle's palsy] Episodic Other nutritional; endocrine; and metabolic disorders (1 source) Obesity, unspecified; Translations: [Obesity, unspecified] Onset: 4 Chronic Other nutritional; endocrine; and metabolic disorders (1 source) Obesity; Translations: [Obesity, unspecified] 02-23-2024 Chronic Other screening for suspected conditions (not mental disorders or infectious disease) (13 sources) Patient encounter status; Translations: [Encounter for screening for malignant neoplasm of colon] Onset: 5 01-07-2023 Episodic Other upper respiratory disease (6 sources) Allergy to pollen; Translations: [Allergic rhinitis due to pollen] 11-07-2019 Chronic Residual codes; unclassified (1 source) Hypersomnia; Translations: [Hypersomnia, unspecified] 10-30-2024 Chronic Spondylosis; intervertebral disc disorders; other back problems (2 sources) Cervicalgia; Translations: [Neck pain] Onset: 4 02-23-2024 Episodic Viral infection (7 sources) Viral disease; Translations: [Viral infection, unspecified] Episodic Results Test Name Value Interpretation Reference Range Facility Mr Teacher Office Visit Reporton 04-19-2024 Mr Teacher Office Visit Report [facility] [address], [place] [address] OFFICE VISIT Date of Service: 04/19/24 MR#: [id number] Acct: [id number] Name: MATILDE VASQUEZ Rep #: [id number] : 1975 Provider: NAZANIN Berger Age/Sex: 49/F Location: [facility] Status: Signed Intake Vital Signs 02/23/24 15:41 04/19/24 08:41 04/19/24 08:52 Height 5 ft 2 in 5 ft 2 in 5 ft 2 in Weight: 233 lb 235 lb 2 oz BMI 42.6 43.0 BP 120/74 120/84 H Blood Pressure Location Lt brachial Position Sitting Respiration 16 Pulse 67 Pulse Source Monitor Temp 97.3 F L Pulse Oximetry (%) 97 Oxygen Delivery Method room air 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) Chief Complaint: Annual Emergency Spill Response Technician Required: No Is patient in pain?: No Allergies acetaminophen (From Vicodin) Adverse Reaction (Verified 04/19/24 08:41) Vomiting hydrocodone bitartrate (From Vicodin) Adverse Reaction (Verified 04/19/24 08:41) Vomiting Medications ???Medication ???Instructions ???Recorded ???Confirmed ???Type loperamide 2 mg capsule (Imodium 2 mg PO Q6H PRN loose stool 11/07/19 04/19/24 History A-D) blood pressure monitor #1 ea 05/19/21 04/19/24 Rx sumatriptan succinate 100 mg See Rx Instructions PO .COMPLEX 02/23/24 04/19/24 Rx tablet (Imitrex) #14 tabs Is last menstrual period known: Yes Last Menstrual Period: 04/14/24 Post menopausal: No Patient : No : No Control Method: BTO [facility] Medical History Flu vaccine need Neck pain GERD (gastroesophageal reflux disease) Wears glasses History of IBS Gastric reflux Heartburn Non-smoker Chest pain Family hx of colon cancer Health care maintenance Skin mole Hypertension Palpitation Colon cancer screening Chronic diarrhea Gastroenteritis due to food toxin Viral syndrome Daigle's palsy IBS (irritable bowel syndrome) Gestational diabetes Back pain Difficulty balancing Diarrhea Migraines Hay fever Surgical History Hx of colonoscopy History of cholecystectomy Hx of section Family History Grandfather Colon cancer, Onset Age: 80 Grandmother Cancer ovarian Father Diabetes Social History household members: spouse, children and other details: Oldest Son - [employer], [place] - 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, 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 Date Name GA/Weeks Outcome Route Bth Weight Gen Labor Lgth Anesthesia Del Locatn Provider FOB Unknown Mark 2003 Unknown Billy 2005 Unknown Eugenio 2009 HPI Encounter for routine gynecological examination Details: MATILDE VASQUEZ is a 49 year old who presents for annual exam. She reports she has always had regular cycles however over the last year her menses has been more irregular. She also reports approx 2 months ago she accidently left a tampon in for over 2 weeks. This eventually fell out on its own. Her symptoms of vaginal pressure, pain, and odor went away instantly.. She has never had any fevers since this and denies symptoms pelvic pain, pressure, discharge, or odor currently. Currently on menses. Last PAP: 2021-negative cyt/negative HPV History of abnormal PAP: none Last mammogram: 2022; normal. History of abnormal mammogram: x15 yrs ago; biopsy negative Colon cancer screenin; good Other preventative health care screenings: Dr. Pearce. Female Reproductive History Last Menstrual Period: 04/14/24 Cycle Length: 21-35 Bleeding Duration: 4 Questions: metorrhagia: No, sexually active: Yes (tubal), dyspareunia: No and PCB: No ROS Const Constitutional: Denies chills, fatigue, fever(s), headache(s) or weight loss Eyes Eyes: Denies change in vision ENT ENT: Denies dizziness Resp Resp: Denies cough GI GI: Denies abdominal pain, constipation or nausea : Denies difficulty voiding, dysuria, hematuria, nipple discharge, pelvic pain, prolapse symptoms, urinary incontinence, vaginal discharge, vaginal d (more content not included)... Normal [facility] Internal Medicine Office Vis iton 02-23-2024 Internal Medicine Office Visit [facility] [address] [place], [place] [address] OFFICE VISIT Date of Service: 02/23/24 MR#: [id number] Acct: [id number] Name: MATILDE VASQUEZ Rep #: [id number] : 1975 Provider: Dr. Garfield kinney MD Age/Sex: 48/F Location: [facility] Status: Signed Intake Vital Signs 11/04/23 11:02 02/23/24 15:41 Height 5 ft 2 in 5 ft 2 in Weight: 233 lb BMI 42.6 BP 120/74 Blood Pressure Location Lt brachial Position Sitting Respiration 16 Pulse 67 Pulse Source Monitor Temp 97.3 F L Temp Source Temporal Pulse Oximetry (%) 97 Oxygen Delivery Method room air Intake Visit Reasons: fu Chief Complaint: 3 M FU Emergency Spill Response Technician Required: No Accompanied by: Self Is patient in pain?: No Allergies acetaminophen (From Vicodin) Adverse Reaction (Verified 02/23/24 15:38) Vomiting hydrocodone bitartrate (From Vicodin) Adverse Reaction (Verified 02/23/24 15:38) Vomiting Medications ???Medication ???Instructions ???Recorded ???Confirmed ???Type loperamide 2 mg capsule (Imodium 2 mg PO Q6H PRN loose stool 11/07/19 02/23/24 History A-D) blood pressure monitor #1 ea 05/19/21 02/23/24 Rx hydroxyzine HCl 25 mg tablet 25 mg PO Q8H PRN anxiety #90 tabs 02/23/24 02/23/24 Rx sumatriptan succinate 100 mg See Rx Instructions PO .COMPLEX 02/23/24 02/23/24 Rx tablet (Imitrex) #14 tabs PFSH Medical History (Updated 02/23/24 @ 16:[address] Garfield Pearce MD) Flu vaccine need Neck pain GERD (gastroesophageal reflux disease) Wears glasses History of IBS Gastric reflux Heartburn Non-smoker Chest pain Family hx of colon cancer Health care maintenance Skin mole Hypertension Palpitation Colon cancer screening Chronic diarrhea Gastroenteritis due to food toxin Viral syndrome Daigle's palsy IBS (irritable bowel syndrome) Gestational diabetes Back pain Difficulty balancing Diarrhea Migraines Hay fever Surgical History Hx of colonoscopy History of cholecystectomy Hx of section Family History Grandfather Colon cancer, Onset Age: 80 Grandmother Cancer ovarian Father Diabetes Social History household members: spouse, children and other details: Oldest Son - [place], [place] - 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 Also has some concerns. She reports left-sided neck area pain. Worse with certain movements. Occasionally, she states that she has had a shooting pain up her neck and down her left upper extremity. Has made some changes with some improvement. Occasionally, uses heat which helps. No change in bowel or bladder habit. Currently at a BMI of 42.6. At her last visit, a prescription for Zepbound was sent however this was not covered by insurance. She admits that she has not made any significant dietary or lifestyle changes. She plans to make changes. Chronic history of migraine, takes a couple Imitrex during episodes however episodes at still few and far between. Also history of reflux, has been able to taper off omeprazole with good symptom control. No dark or bloody stool or unintentional weight changes. ROS Const Constitutional: No body ache, chills, excessive sweating, fatigue, fever(s), frequent falls, headache(s), snoring, weakness or change in appetite Eyes Eyes: No blurry vision, change in vision, bulging eyes, floaters, visual disturbances, eye pain or Light sensitivity ENT ENT: No abnormal hearing, ear or mastoid pain, tinnitus, balance problems, nosebleed/epistaxis, nasal congestion, headache(s), neck pain or sore throat Resp Respiratory: No cough, excessive phlegm production, hemoptysis, pain on inspiration, shortness of breath, snoring or wheezing Cardio Cardiology: No chest pain at rest, chest pain with exertion, excessive sweating, dyspnea on exertion, lightheadedness, orthopnea or palpitations Gastro GI: No abdominal pain, change in bowel habits, constipation, cramping, diarrhea, nausea/dyspepsia or vomiting Genitourinary-Female: No burning urination, painful urination, urinary incontinence, urinary frequency, suprapubic fullness or side pain (more content not included)... Normal [facility] Internal Medicine Office Vis iton 11-04-2023 Internal Medicine Office Visit [facility] [address] [place] [address] [place] [address] OFFICE VISIT Date of Service: 11/04/23 MR#: [id number] Acct: [id number] Name: MATILDE VASQUEZ Rep #: [id number] : 1975 Provider: NAZANIN garcia Age/Sex: 48/F Location: [facility] Status: Signed Intake Vital Signs 04/15/23 14:58 11/04/23 11:02 Height 5 ft 2 in 5 ft 2 in Weight: 234 lb 228 lb BMI 42.7 41.7 BP 130/82 H 130/84 H Blood Pressure Location Lt brachial Lt brachial Position Sitting Sitting Respiration 16 18 Pulse 88 80 Pulse Source Monitor Monitor Temp 99.1 F 97.8 F Temp Source Temporal Temporal Pulse Oximetry (%) 98 97 Oxygen Delivery Method room air room air Intake 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 Chief Complaint: 3 M FU Emergency Spill Response Technician Required: No Is patient in pain?: No Allergies acetaminophen (From Vicodin) Adverse Reaction (Verified 11/04/23 10:57) Vomiting hydrocodone bitartrate (From Vicodin) Adverse Reaction (Verified 11/04/23 10:57) Vomiting Medications ???Medication ???Instructions ???Recorded ???Confirmed ???Type loperamide 2 mg capsule (Imodium 2 mg PO Q6H PRN loose stool 11/07/19 11/04/23 History A-D) blood pressure monitor #1 ea 05/19/21 11/04/23 Rx hydroxyzine HCl 50 mg tablet 50 mg PO Q8H PRN anxiety #30 tabs 05/08/22 11/04/23 Rx sumatriptan succinate 100 mg See Rx Instructions PO .COMPLEX 04/02/23 11/04/23 Rx tablet (Imitrex) #14 tabs omeprazole 40 mg capsule,delayed 40 mg PO DAILY #90 caps 04/15/23 11/04/23 Rx release tirzepatide (weight loss) 2.5 2.5 mg (0.5 mL) subcut QWEEK #2 mL 11/04/23 11/04/23 Rx mg/0.5 mL subcutaneous pen injector (Zepbound) Nurse's Note: Wants to discuss zepbound for weight loss. Goal weight 175 Has been trying diet and exercise. [facility] Medical History GERD (gastroesophageal reflux disease) Wears glasses History of IBS Gastric reflux Heartburn Non-smoker Chest pain Family hx of colon cancer Health care maintenance Skin mole Hypertension Palpitation Colon cancer screening Chronic diarrhea Gastroenteritis due to food toxin Viral syndrome Daigle's palsy IBS (irritable bowel syndrome) Gestational diabetes Back pain Difficulty balancing Diarrhea Migraines Hay fever Surgical History Hx of colonoscopy History of cholecystectomy Hx of section Family History Grandfather Colon cancer, Onset Age: 80 Grandmother Cancer ovarian Father Diabetes Social History household members: spouse, children and other details: Oldest Son - [employer], [place] - [employer] 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 Patient reports she has been struggling with her weight. She reports that she feels that she eats moderately healthy but does eat out a few nights per week. She states she plays pickle ball a few days per week and walks occasionally. She has not recently tried any specific diets or caloric restriction. She does not calorie count. She is interested in using this up to promote weight loss. She reports that her periods have become irregular and she thinks that her may be up perimenopausal component to her weight. She states she feels that she does not eat out of proportion, does not struggle with cravings or overeating does not feel she has an explanation for her weight. ROS Const Constitutional: No body ache, chills, excessive sweating, fatigue, fever(s), frequent falls, headache(s), snoring, weakness, sleep problems or change in appetite Eyes Eyes: No blurry vision, change in vision, eye pain or Light sensitivity ENT ENT: No abnormal hearing, ear or mastoid pain, tinnitus, nasal congestion, headache(s), neck pain or sore throat Resp Respiratory: No cough, shortness of breath, snoring or wheezing Cardio Cardiology: No chest pain at rest, chest pain with exertion, excessive sweating, shortness of breath, dyspnea on exertion, lightheadedness, orthopnea or palpitations Gastro GI: No abdominal pain, change i (more content not included)... Normal [facility] Stool lactoferrin detection by immunoassayOrdered By: Garfield Pearce on 07-19-2023 Lactoferrin IA Ql (Stl) [facility] Absolute lymphocyte countOrd ered By: Garfield Pearce on 07-15-2023 Lymphocytes Auto (Unsp spec) [#/Vol] 3.20 10*3/uL 0.83-4.51 [facility] Automated lymphocyte count a s percentage of total leukocytesOrdered By: Garfield Pearce on 07-15-2023 Lymphocytes/100 WBC Auto (Unsp spec) 37.9 % 19-41 [facility] Basophil percentageOrdered B y: Garfield Pearce on 07-15-2023 Basophils/100 WBC (Bld) 1.1 % 0-1 [facility] Bilirubin [Mass/Vol] 0.40 mg/dL 0.20-1.00 [facility] Comment on above: For patients on eltr ombopag therapy, use of Dimension [place] TBIL is not recommended. Chloride [Moles/Vol] 106 mmol/L 98-107 [facility] Cholesterol [Mass/Vol] 160 mg/dL <200 [facility] Comment on above: <200 mg/dL Desirable 200-240 mg/dL Borderline >240 mg/dL High Risk Eosinophils/100 WBC (Bld) 2.0 % 0-5 [facility] Glucose [Mass/Vol] 92 mg/dL 74-106 [facility] Hemoglobin (Bld) [Mass/Vol] 12.8 g/dL 12.0-15.0 [facility] Monocytes/100 WBC (Bld) 6.6 % 0-10 [facility] Neutrophils (Bld) [#/Vol] 4.4 10*3/uL 2.0-7.7 [facility] Neutrophils/100 WBC (Bld) 52.2 % 47-70 [facility] Potassium [Moles/Vol] 4.3 mmol/L 3.5-5.1 [facility] Protein [Mass/Vol] 7.7 g/dL 6.4-8.2 [facility] Sodium [Moles/Vol] 138 mmol/L 136-145 [facility] Triglyceride [Mass/Vol] 182 mg/dL <199 [facility] Comment on above: The drugs N-Acetylcy steine and Metamizole may falsely depress this assay.Serum Triglycerides Reference Interval Normal <150 mg/dL Borderline high 150 - 199 mg/dL High 200 - 499 mg/dL Very High > or = 500 mg/dL WBC (Bld) [#/Vol] 8.4 10*3/uL 4.4-11.0 [facility] Determination of erythrocyte mean corpuscular volume (MCV)Ordered By: Garfield Pearce on 07-15-2023 MCV (RBC) [Entitic vol] 87.0 fL 81-99 [facility] Erythrocyte distribution wid th ratioOrdered By: Garfield Pearce on 07-15-2023 Erythrocyte distribution width (RBC) [Ratio] 13.7 % 11.6-14.6 [facility] Erythrocyte distribution wid th standard deviationOrdered By: [facility] centermanisha Pearce on 07-15-2023 Erythrocyte distribution width (RBC) [Entitic vol] 43.4 fL 35.1-43.9 [facility] Hematocrit Auto (Bld) [Volum e fraction]Ordered By: Garfield Pearce on 07-15-2023 Hematocrit (Bld) [Volume fraction] 39.6 % 37-47 [facility] Immature granulocytes/100 WB C Auto (Bld)Ordered By: Garfield Pearce on 07-15-2023 Immature granulocytes/100 WBC (Bld) 0.200 % 0.0-0.9 [facility] Comment on above: IG% - Immature Granu locytes (promyelocytes, myelocytes and metamyelocytes) > 1% indicates that a LEFT SHIFT is Present. Laboratory - Chemistry and C hemistry - challengeOrdered By: Garfield Pearce on 07-15-2023 Albumin/Globulin [Mass ratio] 1.1 {ratio} 0.9-2.4 [facility] ALP [Catalytic activity/Vol] 47 U/L 45-117 [facility] ALT [Catalytic activity/Vol] 27 U/L 13-56 [facility] Cholesterol in HDL [Mass/Vol] 43 mg/dL >40 [facility] Comment on above: The drugs N-Acetylcy steine and Metamizole may falsely depress this assay. Reference Range HDL <40 mg/dL Low HDL Cholesterol HDL >or= 60 mg/dL High HDL Cholesterol Cholesterol in LDL [Mass/Vol] 81 mg/dL 0-130 [facility] CO2 [Moles/Vol] 28.0 mmol/L 21.0-32.0 [facility] Globulin (S) [Mass/Vol] 3.7 g/dL 2.2-4.2 [facility] Urea nitrogen/Creatinine [Mass ratio] 12.7 mg/mg 10-20 [facility] Laboratory - Hematology and Cell countsOrdered By: Garfield Pearce on 07-15-2023 MCH (RBC) [Entitic mass] 28.1 pg 27.0-32.0 [facility] MCHC (RBC) [Mass/Vol] 32.3 g/dL 32-36 [facility] Nucleated RBC/100 WBC (Bld) [Ratio] 0 % 0-5 [facility] Platelet mean volume (Bld) [Entitic vol] 10.2 fL 6.2-12.0 [facility] Platelets (Bld) [#/Vol] 308 10*3/uL 150-450 [facility] No Panel InformationOrdered By: Garfield Pearce on 07-15-2023 Estimated GFR (MDRD) Amer 74 mL/min >60 [facility] Comment on above: GFR Calc Estimated GFR (MDRD) Non-Af Amer 61 mL/min >60 [facility] Comment on above: Non- GFR Calc VLDL Cholesterol 36 mg/dL 5-40 [facility] RBC Auto (Bld) [#/Vol]Ordere d By: Garfield Pearce on 07-15-2023 RBC (Bld) [#/Vol] 4.55 10*6/uL 4.2-5.4 [facility] Serum or plasma calcium luz marina urement (mass/volume)Ordered By: Garfield Pearce on 07-15-2023 Calcium [Mass/Vol] 9.2 mg/dL 8.5-10.1 [facility] Serum or plasma creatinine m easurement (mass/volume)Ordered By: Garfield Pearce on 07-15-2023 Creatinine [Mass/Vol] 1.02 mg/dL 0.55-1.02 [facility] Comment on above: The validity of the calculated GFR & GFRAA in patients over 70 years has not been determined. Clinical correlation is essential. Serum or plasma thyroid stim ulating hormone (TSH) measurement (units/volume)Ordered By: Garfield Pearce on 07-15-2023 TSH Qn 0.54 uIU/mL 0.358-3.74 [facility] Serum or plasma urea nitroge n measurement (mass/volume)Ordered By: Garfield Pearce on 07-15-2023 Urea nitrogen [Mass/Vol] 13 mg/dL 7-18 [facility] Thin prep Papanicolaou smear with manual screeningOrdered By: Garfield Pearce on 07-15-2023 Thin prep Papanicolaou smear with manual screening 4.0 g/dL 3.2-5.0 [facility] Thin prep Papanicolaou smear with manual screening 21 U/L 15-37 [facility] Thin prep Papanicolaou smear with manual screening 4 5-15 [facility] Thin prep Papanicolaou smear with manual screening 1.13 ng/dL 0.76-1.46 [facility] CNPNon 08-04-2022 MARGIE Telephone (FMIUNI) MARYMATILDE HOBBS ([id number]) 1975 F Date Time Provider Department 08/04/22 BIN ACEVEDO FMIUNI During your visit today, we recorded the following information about you: Bin Acevedo APRN.CNP 08/04/2022 9:39 AM Signed Patient did not review [employer] message. Please reach out and discuss following This message is to inform you that the patient has not yet read the following message. (Notification date: July 28, 2022) Results From Bin Acevedo APRN.ARCHITECTURAL REPRESENTATIVE To Matilde Vasquez Sent and Delivered 07/27/2022 4:12 PM Hi Matilde, Your urine culture has just resulted. It has mixed bacteria, which can occur at time of collection. If symptoms are improving, you can continue antibiotic. Please follow up with your primary care doctor as you had blood in your urine. [employer] [place] [employer] User Last Read On Matilde Vasquez Not Read Allergies As of Date: 08/04/2022 (No Known Allergies) Date Reviewed: 07/26/2022 Reviewed by: Wen Cotter LPN - Fully Assessed Reason for Visit: Results [95] Prescriptions as of 08/04/2022 - phenazopyridine (PYRIDIUM) 200 mg tablet Take 1 tablet by mouth three times daily as needed. Problem List As Of Date: 08/04/2022 (None) Encounter Status:Closed by BIN ACEVEDO on 08/04/22 Normal [facility] KIDNEY/BLADDERon 07-28-19 US KIDNEY/BLADDER * * *Final Report* * * DATE OF EXAM: Jul 27 2022 12:06PM [facility] 1055 - US KIDNEY/BLADDER / PROCEDURE REASON: UTI symptoms * * * * Physician Interpretation * * * * EXAMINATION: RENAL ULTRASOUND CLINICAL HISTORY: Urinary tract infection symptoms TECHNIQUE: Sonography of the kidneys and urinary bladder was performed. Images were obtained and stored in a permanent archive and interpreted remotely. MQ: UR_1 COMPARISON: None RESULT: Right Kidney: -Renal length: 11.1 cm -Parenchyma: Normal parenchymal echogenicity. Normal parenchymal thickness. -Collecting system: No hydronephrosis. -Calculus: No echogenic, shadowing calculus. -Lesion: None. Left Kidney: -Renal length: 12.2 cm -Parenchyma: Normal parenchymal echogenicity. Normal parenchymal thickness. -Collecting system: No hydronephrosis. -Calculus: No echogenic, shadowing calculus. -Lesion: None. Bladder: Partially distended with prevoid volume of 100 mL. Post void volume measures 1 mL. IMPRESSION: Normal sonographic appearance of the kidneys. Bookie: PSCB Transcribe Date/Time: Jul 27 2022 12:14P Dictated by : LOIS ORR MD This examination was interpreted and the report reviewed and electronically signed by: LOIS ORR MD on Jul 27 2022 12:16PM EST [id number] Normal [facility] Bacteria Ur Culton 3 Bacteria identified Cx Nom (U) ORGANISM ID: 1 50,000-<100,000 CFU/ml Mixed microbiota No further workup. Mixed microbiota can be due to???urine???contamin ation with skin bacteria at time of collection or presence of a long-term urinary catheter. If a new culture is needed, please consider re-education of the patient on proper midstream collection technique or straight catheterization for???urine???collect ion. Normal [facility] Comment on above: Performed By: #### 6 30-4 #### [facility] CLIA [id number] [address] [place] [address] [place] CNOVon 07-26-2022 CNOV Office Visit ([facility] ) MATILDE VASQUEZ ([id number]) 1975 F Date Time Provider Department 4/23/23 11:15 AM ACEVEDOALEKSANDR [place] [facility] During your visit today, we recorded the following information about you: Temperature Pulse Respiration Blood pressure 97.9 degrees 81/minute 18/minute 138/90 Weight 97.5 kg Binshiv Acevedo APRN.CNP 07/26/2022 11:48 AM Signed This note was created using [employer]. Subjective Matilde Vasquez is a 47 year old female. 47 year old female with no PMH presents with complaints of illness. Onset yesterday evening Just something felt off Acute onset today at 1000 +lower left back Denies trauma or injury to her back. +urinary frequency +urgency +burn feeling in pressure +feeling flushed. Denies N/V/D Denies skin rash or lesions. Denies recent coitus Denies vaginal discharge. Denies vaginal bleeding. The history is provided by the patient. No car blocker was used. UTI This is a new problem. The current episode started yesterday. The problem occurs every urination. The problem has been gradually worsening. The pain is at a severity of 4/10. The pain is moderate. There has been no fever. Sexually active: denies recent sexual activity. Associated symptoms include vomiting, frequency and urgency. Pertinent negatives include no chills, no sweats, no nausea, no discharge, no hematuria and no hesitancy. She has tried nothing for the symptoms. Her past medical history does not include kidney stones, single kidney, urological procedure, recurrent UTIs, urinary stasis or catheterization. PAST MEDICAL HISTORY Diagnosis Date NEGATIVE MEDICAL HISTORY PAST SURGICAL HISTORY Procedure Laterality Date SECTION HX x3 LAPAROSCOPIC CHOLEYCYSTECTOMY ALLERGIES Patient has no known allergies. MEDICATIONS sulfamethoxazole-trim ethoprim (BACTRIM DS) 800-160 mg per tablet Take 1 tablet by mouth twice daily for 5 days. phenazopyridine (PYRIDIUM) 200 mg tablet Take 1 tablet by mouth three times daily as needed. No family history on file. Social History Tobacco Use Smoking status: Never Smokeless tobacco: Never Review of Systems Constitutional: Negative for chills. Eyes: Negative for discharge and itching. Respiratory: Negative for apnea, cough, choking and chest tightness. Cardiovascular: Negative for chest pain, palpitations and leg swelling. Gastrointestinal: Positive for vomiting. Negative for abdominal pain, diarrhea and nausea. Genitourinary: Positive for dysuria, frequency and urgency. Negative for hematuria and hesitancy. Musculoskeletal: Negative for arthralgias, back pain, gait problem and joint swelling. Skin: Negative for color change, pallor, rash and wound. Allergic/Immunologic: Negative for environmental allergies, food allergies and immunocompromised state. Neurological: Negative for dizziness and facial asymmetry. Hematological: Negative for adenopathy. Does not bruise/bleed easily. Psychiatric/Behaviora l: Negative for agitation and behavioral problems. Objective BP 138/90 Pulse 81 Temp 36.6 ?C (97.9 ?F) Resp 18 Wt 97.5 kg (215 lb) LMP 06/22/2016 SpO2 99% Physical Exam Vitals and nursing note reviewed. Constitutional: General: She is not in acute distress. Appearance: Normal appearance. She is normal weight. She is not ill-appearing, toxic-appearing or diaphoretic. HENT: Head: Normocephalic and atraumatic. Right Ear: Ear canal and external ear normal. Left Ear: Ear canal and external ear normal. Nose: Nose normal. No congestion or rhinorrhea. Mouth/Throat: Mouth: Mucous membranes are moist. Pharynx: No oropharyngeal exudate or posterior oropharyngeal erythema. Eyes: General: Right eye: No discharge. Left eye: No discharge. Extraocular Movements: Extraocular movements intact. Conjunctiva/sclera: Conjunctivae normal. Pupils: Pupils are equal, round, and reactive to light. Cardiovascular: Rate and Rhythm: Normal rate and regular rhythm. Pulses: Normal pulses. Heart sounds: Normal heart sounds. No murmur heard. No friction rub. Pulmonary: Effort: Pulmonary effort is normal. No respiratory distress. Breath sounds: Normal breath sounds. No stridor. No wheezing, rhonchi or rales. Chest: Chest wall: No tenderness. Abdominal: General: Abdomen is flat. There is no distension. Palpations: Abdomen is soft. There is no mass. Tenderness: There is no abdominal tenderness. There is no right CVA tenderness, left CVA tenderness, guarding or rebound. Hernia: No hernia is present. Musculoskeletal: General: No swelling, tenderness, deformity or signs of injury. Normal range of motion. Cervical back: Normal range of motion and neck supple. No rigidity. Right lower leg: No edema. Left lower leg: No edema. Lymphadenopathy: Cervical: No cervical adenopathy. Skin: General: (more content not included)... Normal [facility] UA DIP, URINE (POC)on 2022 BILIRUBIN UA (POCT) Negative Negative [facility] CLARITY UA (POCT) Clear [facility] COLOR UA (POCT) Yellow [facility] GLUCOSE UA (POCT) Negative Negative mg/dL [facility] HEMOGLOBIN/BLOOD UA (POCT) Moderate Abnormal Negative [facility] KETONE UA (POCT) Trace Negative mg/dL [facility] LEUKOCYTES UA (POCT) Negative Negative [facility] NITRITE UA (POCT) Negative Negative [facility] PH UA (POCT) 5.0 4.5 - 8.0 [facility] Protein Ql (U) Negative Negative mg/dL [facility] SPECIFIC GRAVITY UA (POCT) >=1.030 1.005 - 1.030 [facility] UROBILINOGEN UA (POCT) 0.2 E.U./dL Geri l E.U./dL [facility] Cervical or vagninal specime n microscopic examination by cytology stain (reported ason 06-03-2021 Cytology report Cyto stain Doc (Cvx/Vag) Comment [facility] Work Phone: Comment on above: The Pap smear is a s creening test designed to aid in thedetection of premalignant and malignant conditions of theuterine cervix. It is not a diagnostic procedure andshould not be used as the sole means of detecting cervicalcancer. Both false-positive and false-negative reports dooccur. Detection in cervical specim en of any of human papilloma virus (HPV) 16, 18, 31, 33,on 06-03-2021 HPV 16+18+31+33+35+39+45+51 +52+56+58+59+66+68 DNA Probe+sig amp Ql (Cvx) Negative Negative [facility] Work Phone: Comment on above: This nucleic acid am plification test detects fourteen high-risk HPV types (16,18,31,33,35,39,45,51,52,56,58,59,66,68)without differentiation.Performed at: [address] [id number] Director: Leonor Montemayor MD, Phone: [phone] at: = - [facility] [place], [place] [id number] Director: Leonor Montemayor MD, Phone: [phone] Laboratory - Cytologyon - Nursing Specialist Cyto stain Nom (Cvx/Vag) [ID] Comment [facility] Work Phone: Comment on above: César Lundberg totechnologist (ASCP) Laboratory - Miscellaneous t estson 06-03-2021 Service comment (Unsp spec) [Interp] Comment [facility] Work Phone: Comment on above: This liquid based Th inPrep(R) pap test was screened withthe use of an image guided system. Service comment (Unsp spec) [Interp] . [facility] Work Phone: No Panel Informationon 06-03 Pathology report final diagnosis Narrative Comment [facility] Work Phone: Comment on above: NEGATIVE FOR INTRAEP ITHELIAL LESION OR MALIGNANCY. Absolute lymphocyte counton 05-19-2021 Lymphocytes Auto (Unsp spec) [#/Vol] 3.26 10*3/uL 0.83-4.51 [facility] Work Phone: Basophil percentageon 2021 Basophils/100 WBC (Bld) 0.9 % 0-1 [facility] Work Phone: Bilirubin [Mass/Vol] 0.20 mg/dL 0.20-1.00 [facility] Work Phone: Comment on above: For patients on eltr ombopag therapy, use of Dimension [place] TBIL is not recommended. Chloride [Moles/Vol] 110 mmol/L 98-107 [facility] Work Phone: Cholesterol [Mass/Vol] 167 mg/dL <200 [facility] Work Phone: Comment on above: <200 mg/dL Desirable 200-240 mg/dL Borderline >240 mg/dL High Risk Eosinophils/100 WBC (Bld) 2.0 % 0-5 [facility] Work Phone: [phone] Glucose [Mass/Vol] 93 mg/dL 74-106 [facility] Work Phone: Neutrophils (Bld) [#/Vol] 4.8 10*3/uL 2.0-7.7 [facility] Work Phone: Neutrophils/100 WBC (Bld) 54.4 % 47-70 [facility] Work Phone: [phone] Potassium [Moles/Vol] 3.9 mmol/L 3.5-5.1 [facility] Work Phone: Protein [Mass/Vol] 7.4 g/dL 6.4-8.2 [facility] Work Phone: Sodium [Moles/Vol] 139 mmol/L 136-145 [facility] Work Phone: Triglyceride [Mass/Vol] 216 mg/dL [facility] Work Phone: Comment on above: The drugs N-Acetylcy steine and Metamizole may falsely depress this assay.Serum Triglycerides Reference Interval Normal <150 mg/dL Borderline high 150 - 199 mg/dL High 200 - 499 mg/dL Very High > or = 500 mg/dL WBC (Bld) [#/Vol] 8.8 10*3/uL 4.4-11.0 [facility] Work Phone: Blood erythrocytes count (nu mber/volume)on 05-19-2021 RBC (Bld) [#/Vol] 4.54 10*6/uL 4.2-5.4 [facility] Work Phone: Blood hemoglobin measurement (mass/volume)on 05-19-2021 Hemoglobin (Bld) [Mass/Vol] 12.7 g/dL 12.0-15.0 [facility] Work Phone: Blood lymphocytes/100 leukoc yteson 05-19-2021 Lymphocytes/100 WBC (Bld) 37.0 % 19-41 [facility] Work Phone: [phone] Blood monocytes/100 leukocyt eson 05-19-2021 Monocytes/100 WBC (Bld) 5.5 % 0-10 [facility] Work Phone: Blood platelet mean volumeon 05-19-2021 Platelet mean volume (Bld) [Entitic vol] 10.4 fL 6.2-12.0 [facility] Work Phone: Determination of erythrocyte mean corpuscular volume (MCV)on 05-19-2021 MCV (RBC) [Entitic vol] 86.3 fL 81-99 [facility] Work Phone: Hematocrit Auto (Bld) [Volum e fraction]on 05-19-2021 Hematocrit (Bld) [Volume fraction] 39.2 % 37-47 [facility] Work Phone: Laboratory - Chemistry and C hemistry - challengeon 05-19-2021 ALP [Catalytic activity/Vol] 52 U/L 45-117 [facility] Work Phone: ALT [Catalytic activity/Vol] 18 U/L 13-56 [facility] Work Phone: [phone] CO2 [Moles/Vol] 25.0 mmol/L 21.0-32.0 [facility] Work Phone: Globulin (S) [Mass/Vol] 3.6 g/dL 2.2-4.2 [facility] Work Phone: Urea nitrogen/Creatinine [Mass ratio] 16.9 mg/mg 10-20 [facility] Work Phone: Laboratory - Hematology and Cell countson 05-19-2021 Erythrocyte distribution width (RBC) [Entitic vol] 43.4 fL 35.1-43.9 [facility] Work Phone: Erythrocyte distribution width (RBC) [Ratio] 13.8 % 11.6-14.6 [facility] Work Phone: Immature granulocytes/100 WBC (Bld) 0.200 % 0.0-0.9 [facility] Work Phone: Comment on above: IG% - Immature Granu locytes (promyelocytes, myelocytes and metamyelocytes) > 1% indicates that a LEFT SHIFT is Present. MCH (RBC) [Entitic mass] 28.0 pg 27.0-32.0 [facility] Work Phone: Nucleated RBC/100 WBC (Bld) [Ratio] 0 % 0-5 [facility] Work Phone: MCHC Auto (RBC) [Mass/Vol]on 05-19-2021 MCHC (RBC) [Mass/Vol] 32.4 g/dL 32-36 [facility] Work Phone: No Panel Informationon 05-19 Estimated GFR (MDRD) Amer 88 mL/min >60 [facility] Work Phone: Comment on above: GFR Calc Estimated GFR (MDRD) Non-Af Amer 73 mL/min >60 [facility] Work Phone: Comment on above: Non- GFR Calc Thyroid Stimulating Hormone (TSH) 0.83 uIU/mL 0.358-3.74 [facility] Work Phone: Platelets bldon 05-19-2021 Platelets (Bld) [#/Vol] 302 10*3/uL 150-450 [facility] Work Phone: Serum or plasma albumin luz marina urement (mass/volume)on 05-19-2021 Albumin [Mass/Vol] 3.8 g/dL 3.2-5.0 [facility] Work Phone: Serum or plasma albumin/glob ulin mass ratioon 05-19-2021 Albumin/Globulin [Mass ratio] 1.1 {ratio} 0.9-2.4 [facility] Work Phone: Serum or plasma calcium luz marina urement (mass/volume)on 02-14-2022 Calcium [Mass/Vol] 8.4 mg/dL 8.5-10.1 [facility] Work Phone: Serum or plasma cholesterol in HDL measurement (mass/volume)on 05-19-2021 Cholesterol in HDL [Mass/Vol] 44 mg/dL [facility] Work Phone: Comment on above: The drugs N-Acetylcy steine and Metamizole may falsely depress this assay. Reference Range HDL <40 mg/dL Low HDL Cholesterol HDL >or= 60 mg/dL High HDL Cholesterol Serum or plasma cholesterol in VLDL measurement (mass/volume)on 05-19-2021 Cholesterol in VLDL [Mass/Vol] 43 mg/dL 5-40 [facility] Work Phone: Serum or plasma creatinine m easurement (mass/volume)on 05-19-2021 Creatinine [Mass/Vol] 0.89 mg/dL 0.55-1.02 [facility] Work Phone: Comment on above: The validity of the calculated GFR & GFRAA in patients over 70 years has not been determined. Clinical correlation is essential. Serum or plasma low density lipoprotein (LDL) cholesterol measurement (mass/volume)on 05-19-2021 Cholesterol in LDL [Mass/Vol] 80 mg/dL 0-130 [facility] Work Phone: Serum or plasma urea nitroge n measurement (mass/volume)on 05-19-2021 Urea nitrogen [Mass/Vol] 15 mg/dL 7-18 [facility] Work Phone: Thin prep Papanicolaou smear with manual screeningon 05-19-2021 Thin prep Papanicolaou smear with manual screening 15 U/L 15-37 [facility] Work Phone: Thin prep Papanicolaou smear with manual screening 4 5-15 [facility] Work Phone: Vital Signs Date Time Vital Sign Value Performing Clinician Chetani walter 10-30-2024 08:16-0400 Body height 157.[address] Garfield Pearce MD Work Phone: [facility] 10-30-2024 08:16-0400 Body mass index (BMI) [Ratio] 43.2 kg/m2 Dr. Garfield Pearce MD Work Phone: [facility] 10-30-2024 08:16-0400 Body temperature 97.4 [degF] Dr. Garfield Pearce MD Work Phone: [facility] 10-30-2024 08:16-0400 Body weight 107.[address] Garfield Pearce MD Work Phone: [facility] 10-30-2024 08:16-0400 Diastolic blood pressure 78 mm[Hg] Dr. Garfield Pearce MD Work Phone: [facility] 10-30-2024 08:16-0400 Heart rate 79 /min Dr. Garfield Pearce MD Work Phone: [facility] 10-30-2024 08:16-0400 Respiratory rate 16 /min Dr. Garfield Pearce MD Work Phone: [facility] 10-30-2024 08:16-0400 SaO2% (BldA) [Mass fraction] 97 % Dr. Garfield Pearce MD Work Phone: [facility] 10-30-2024 08:16-0400 Systolic blood pressure 138 mm[Hg] Dr. Garfield Pearce MD Work Phone: [facility] 08-02-2024 08:33-0400 Body mass index (BMI) [Ratio] 42.7 kg/m2 Dr. Garfield Pearce MD Work Phone: [facility] 08-02-2024 08:33-0400 Body weight 106.[address] Garfield Pearce MD Work Phone: [facility] 08-02-2024 08:33-0400 Diastolic blood pressure 84 mm[Hg] Dr. Garfield Pearce MD Work Phone: [facility] 08-02-2024 08:33-0400 Systolic blood pressure 138 mm[Hg] Dr. Garfield Pearce MD Work Phone: [facility] 04-15-2023 14:58-0500 Body height 157.[address] Garfield Pearce Work Phone: [facility] 04-15-2023 14:58-0500 Body mass index (BMI) [Ratio] 42.7 kg/m2 Dr. Garfield Pearce Work Phone: [facility] 04-15-2023 14:58-0500 Body temperature 99.1 [degF] Dr. Garfield Pearce Work Phone: [facility] 04-15-2023 14:58-0500 Body weight 106.[address] Garfield Pearce Work Phone: [facility] 04-15-2023 14:58-0500 Diastolic blood pressure 82 mm[Hg] Dr. Garfield Pearce Work Phone: [facility] 04-15-2023 14:58-0500 Heart rate 88 /min Dr. Garfield Pearce Work Phone: [facility] 04-15-2023 14:58-0500 Respiratory rate 16 /min Dr. Garfield Pearce Work Phone: [facility] 04-15-2023 14:58-0500 SaO2% (BldA) [Mass fraction] 98 % Dr. Garfield Pearce Work Phone: [facility] 04-15-2023 14:58-0500 Systolic blood pressure 130 mm[Hg] Dr. Garfield Peacre Work Phone: [facility] 03-25-2023 11:20-0500 Body temperature 97.5 [degF] Dr. Garfield Pearce Work Phone: [facility] 03-25-2023 11:20-0500 Diastolic blood pressure 66 mm[Hg] Dr. Garfield Pearce Work Phone: [facility] 03-25-2023 11:20-0500 Heart rate 64 /min Dr. Garfield Pearce Work Phone: [facility] 03-25-2023 11:20-0500 Respiratory rate 16 /min Dr. Garfield Pearce Work Phone: [facility] 03-25-2023 11:20-0500 SaO2% (BldA) [Mass fraction] 99 % Dr. Garfield Pearce Work Phone: [facility] 03-25-2023 11:20-0500 Systolic blood pressure 114 mm[Hg] Dr. Garfield Pearce Work Phone: [facility] 03-25-2023 09:33-0500 Body height 157.[address] Garfield Pearce Work Phone: [facility] 03-25-2023 09:33-0500 Body mass index (BMI) [Ratio] 41.5 kg/m2 Dr. Garfield Pearce Work Phone: [facility] 03-25-2023 09:33-0500 Body weight 103.[address] Garfield Pearce Work Phone: [facility] 01-14-2023 11:39-0400 Body height 157.[address] Garfield Pearce Work Phone: [facility] 01-14-2023 11:39-0400 Body mass index (BMI) [Ratio] 42 kg/m2 Dr. Garfield Pearce Work Phone: [facility] 01-14-2023 11:39-0400 Body weight 104.[address] Garfield Pearce Work Phone: [facility] 11-03-2022 10:33-0400 Body mass index (BMI) [Ratio] 42.5 kg/m2 Dr. Garfield Pearce Work Phone: [facility] 11-03-2022 10:33-0400 Body temperature 96.3 [degF] Dr. Garfield Pearce Work Phone: [facility] 11-03-2022 10:33-0400 Body weight 105.[address] Garfield Pearce Work Phone: [facility] 11-03-2022 10:33-0400 Diastolic blood pressure 86 mm[Hg] Dr. Garfield Pearce Work Phone: [facility] 11-03-2022 10:33-0400 Heart rate 74 /min Dr. Garfield Pearce Work Phone: [facility] 11-03-2022 10:33-0400 Respiratory rate 18 /min Dr. Garfield Pearce Work Phone: [facility] 11-03-2022 10:33-0400 SaO2% (BldA) [Mass fraction] 96 % Dr. Garfield Pearce Work Phone: [facility] 11-03-2022 10:33-0400 Systolic blood pressure 134 mm[Hg] Dr. Garfield Pearce Work Phone: [facility] 07-26-2022 11:25-0400 Body temperature 97.9 [degF] Bin Acevedo ASP WEB DEVELOPER.ARCHITECTURAL REPRESENTATIVE Work Phone: [facility] 07-26-2022 11:25-0400 Body weight 97.52 kg Bin Acevedo ASP WEB DEVELOPER.ARCHITECTURAL REPRESENTATIVE Work Phone: [facility] 07-26-2022 11:25-0400 Diastolic blood pressure 90 mm[Hg] Bin Acevedo ASP WEB DEVELOPER.ARCHITECTURAL REPRESENTATIVE Work Phone: [facility] 07-26-2022 11:25-0400 Heart rate 81 /min Bin Acevedo ASP WEB DEVELOPER.ARCHITECTURAL REPRESENTATIVE Work Phone: [facility] 07-26-2022 11:25-0400 Respiratory rate 18 /min Binjulia Acevedo ASP WEB DEVELOPER.ARCHITECTURAL REPRESENTATIVE Work Phone: [facility] 07-26-2022 11:25-0400 SaO2% (BldA) [Mass fraction] 99 % Binjulia Acevedo ASP WEB DEVELOPER.ARCHITECTURAL REPRESENTATIVE Work Phone: [facility] 07-26-2022 11:25-0400 Systolic blood pressure 138 mm[Hg] Binjulia Acevedo ASP WEB DEVELOPER.ARCHITECTURAL REPRESENTATIVE Work Phone: [facility] 09-08-2021 09:19-0400 Body height 160.[address] Garfield Pearce Work Phone: [facility] Work Phone: 09-08-2021 09:19-0400 Body mass index (BMI) [Ratio] 39.6 kg/m2 Dr. Garfield Pearce Work Phone: [facility] Work Phone: 09-08-2021 09:19-0400 Body temperature 98 [degF] Dr. Garfield Pearce Work Phone: [facility] Work Phone: 09-08-2021 09:19-0400 Body weight 101.[address] Garfield Pearce Work Phone: [facility] Work Phone: 09-08-2021 09:19-0400 Diastolic blood pressure 82 mm[Hg] Dr. Garfield Pearce Work Phone: [facility] Work Phone: 09-08-2021 09:19-0400 Heart rate 86 /min Dr. Garfield Pearce Work Phone: [facility] Work Phone: 09-08-2021 09:19-0400 Respiratory rate 16 /min Dr. Garfield Pearce Work Phone: [facility] Work Phone: 09-08-2021 09:19-0400 SaO2% (BldA) [Mass fraction] 98 % Dr. Garfield Pearce Work Phone: [facility] Work Phone: 09-08-2021 09:19-0400 Systolic blood pressure 118 mm[Hg] Dr. Garfield Pearce Work Phone: [facility] Work Phone: 06-03-2021 13:27-0500 Body mass index (BMI) [Ratio] 40.4 kg/m2 Dr. Garfield Pearce Work Phone: [facility] Work Phone: 06-03-2021 13:27-0500 Body weight 103.[address] Garfield Pearce Work Phone: [facility] Work Phone: 06-03-2021 13:27-0500 Diastolic blood pressure 76 mm[Hg] Dr. Garfield Pearce Work Phone: [facility] Work Phone: 06-03-2021 13:27-0500 Systolic blood pressure 128 mm[Hg] Dr. Garfield Pearce Work Phone: [facility] Work Phone: 05-29-2021 14:44-0500 Body temperature 99.2 [degF] Dr. Garfield Pearce Work Phone: [facility] Work Phone: 05-29-2021 14:44-0500 Body weight 101.[address] Garfield Pearce Work Phone: [facility] Work Phone: 05-29-2021 14:44-0500 Diastolic blood pressure 88 mm[Hg] Dr. Garfield Pearce Work Phone: [facility] Work Phone: 05-29-2021 14:44-0500 Heart rate 106 /min Dr. Garfield Pearce Work Phone: [facility] Work Phone: 05-29-2021 14:44-0500 Respiratory rate 16 /min Dr. Garfield Pearce Work Phone: [facility] Work Phone: 05-29-2021 14:44-0500 SaO2% (BldA) [Mass fraction] 99 % Dr. Garfield Pearce Work Phone: [facility] Work Phone: 05-29-2021 14:44-0500 Systolic blood pressure 134 mm[Hg] Dr. Garfield Pearce Work Phone: [facility] Work Phone: 05-19-2021 14:06-0500 Body mass index (BMI) [Ratio] 41.3 kg/m2 Dr. Garfield Pearce Work Phone: [facility] Work Phone: 05-19-2021 14:06-0500 Body temperature 96.4 [degF] Dr. Garfield Pearce Work Phone: [facility] Work Phone: 05-19-2021 14:06-0500 Body weight 105.[address] Garfield Pearce Work Phone: [facility] Work Phone: 05-19-2021 14:06-0500 Diastolic blood pressure 90 mm[Hg] Dr. Garfield Pearce Work Phone: [facility] Work Phone: 05-19-2021 14:06-0500 Heart rate 86 /min Dr. Garfield Pearce Work Phone: [facility] Work Phone: 05-19-2021 14:06-0500 Respiratory rate 16 /min Dr. Garfield Pearce Work Phone: [facility] Work Phone: 05-19-2021 14:06-0500 SaO2% (BldA) [Mass fraction] 99 % Dr. Garfield Pearce Work Phone: [facility] Work Phone: 05-19-2021 14:06-0500 Systolic blood pressure 142 mm[Hg] Dr. Garfield Pearce Work Phone: [facility] Work Phone: Encounters Encounter Date Encounter Type Care Provider Facility Start: 10-30-2024 End: 10-30-[address] Garfield Pearce MD Work Phone: -[facility] Start: 10-30-2024 End: 10-30-[address] Garfield Pearce MD -[facility] Work Phone: Start: 08-02-2024 End: 08-02-2024 Patient encounter procedure Rosalva BACK -[facility] Work Phone: Start: 08-02-2024 End: 08-02-2024 ambulatory [place] Start: 04-19-2024 End: 04-19-2024 [facility] Start: 02-23-2024 End: 02-23-2024 ambulatory [place] Oleghe [facility] Start: 11-04-2023 End: 11-04-2023 ambulatory [place] Oleghe Facility:[facility] Start: 07-19-2023 End: 07-19-[address] Garfield Pearce Work Phone: [facility] Work Phone: Start: 07-19-2023 End: 07-19-[address] [facility] Work [facility]: Start: 07-15-2023 End: 07-15-[address] Garfield Pearce Work Phone: [facility] Work Phone: Start: 07-15-2023 End: 07-15-[address] Garfield Pearce Work Phone: [facility] Start: 07-15-2023 End: 07-15-[address] Garfield Pearce Work Phone: [facility] Work Phone: Start: 04-15-2023 End: 04-15-[address] Garfield Pearce Work Phone: [facility] Work Phone: Start: 03-25-2023 Non-patient / Non-visit Dr. Olga Pearce Work Phone: [facility] Start: 03-25-2023 End: 03-25-2023 Admission to same day surgery center Dr. Garfield Pearce Work Phone: [facility] Work Phone: Start: 03-25-2023 End: 03-25-[address] Garfield Pearce Work Phone: [facility] Work Phone: Start: 02-19-2023 End: 02-19-[address] Garfield Pearce Work Phone: [facility] Work Phone: Start: 02-19-2023 End: 02-19-[address] Garfield Pearce Work Phone: [facility] Work Phone: Start: 01-14-2023 Non-patient / Non-visit Dr. Olga Pearce Work Phone: [facility] Work Phone: Start: 01-07-[address] Garfield Pearce Work Phone: [facility] Start: 01-07-2023 End: 01-07-2023 Encounter for general adult medical examination without abnormal findings Dr. Garfield Pearce Work Phone: [facility] Start: 01-07-2023 End: 01-07-[address] Garfield Pearce Work Phone: [facility] Work Phone: Start: 08-04-2022 Telephone encounter Bin bro ASP WEB DEVELOPER.ARCHITECTURAL REPRESENTATIVE Work Phone: [facility] Comment on above: Results Start: 07-27-2022 End: 07-27-2022 ambulatory [facility] Facility:[facility] Start: 07-26-2022 End: 07-26-2022 ambulatory [facility] Start: 07-26-2022 End: 07-26-2022 Patient encounter procedure Bin Acevedo ASP WEB DEVELOPER.ARCHITECTURAL REPRESENTATIVE Work Phone: [facility] Comment on above: UTI symptoms (Primar y Dx); Left flank pain Start: 09-10-2021 End: 09-10-[address] Garfield Pearce Work Phone: [facility] Start: 09-08-2021 End: 09-08-[address] Garfield Pearce Work Phone: [facility] Start: 06-03-2021 End: 06-03-[address] Garfield Pearce Work Phone: [facility] Start: 06-03-2021 End: 06-03-[address] Garfield Pearce Work Phone: [facility] Start: 05-29-2021 End: 05-29-[address] Garfield Pearce Work Phone: [facility] Start: 05-19-2021 End: 05-19-[address] Garfield Pearce Work Phone: [facility] Procedures Date Procedure Procedure Detail Performing Clinician Start: 07-19-[address] Garfield Pearce Work Phone: Start: 03-25-[address] Matias Pearce Work Phone: Start: 02-19-2023 Screening mammography D teresa Pearce Work Phone: Start: 07-26-2022 Urnls dip stick/tabl et rgnt auto w/o microscopy Bin Acevedo ASP WEB DEVELOPER.ARCHITECTURAL REPRESENTATIVE Work Phone: Start: 09-10-2021 Screening mammography D teresa Pearce Work Phone: Plan of Treatment Date Care Activity Detail Author Start: 10-30-2024 CBC W Auto Different ial panel - Blood [facility] Start: 10-30-2024 Comprehensive metabo lic 2000 panel - Serum or Plasma [facility] Start: 10-30-2024 Lipid 1996 panel - S latrell or Plasma [facility] Start: 03-25-2023 Colonoscopy flx dx w /collj spec when pfrmd DIAGNOSTIC COLONOSCOPY [facility] Start: 03-25-2023 Patient discharge [facility] Start: 01-07-2023 Evaluation of diagno stic study results [facility] Start: 01-07-2023 Patient referral [facility] Work Phone: Start: 07-26-2022 End: 09-25-2022 Bacteria identified in Urine by Culture URINE CULTURE Microbiology Routine UTI symptoms Expected: 07/26/2022, Expires: 09/25/2022 [facility] Work Phone: Comment on above: Expected: 07/26/2022 , Expires: 09/25/2022 Start: 04-05-2022 DEPRESSION ASSESSMENT DEPRESSION ASS ESSMENT [facility] Start: 04-28-2021 COVID-19 VACCINE (4 - Booster for Pfizer series) COVID-19 VACCINE (4 - Booster for Pfizer series) [facility] Start: 2020 COLOGUARD (FIT-DNA) COLOGUARD (FIT-D NA) [facility] Start: 2020 Colonoscopy COLONOSCOPY [facility] Start: 2020 COLORECTAL CANCER SCREENING COLORECTAL CANCER SCREENING [facility] Start: [address] COLONOGRAPHY [facility] Start: 2020 DIABETES SCREEN DIABETES SCREEN [facility] Start: 2020 FECAL OCCULT BLOOD FECAL OCCULT BLOO D [facility] Start: 2020 LIPID SCREEN LIPID SCREEN [facility] Start: 2020 SIGMOIDOSCOPY SIGMOIDOSCOPY [facility] Start: 2015 Mammography MAMMOGRAM [facility] Start: 2005 HPV TESTING HPV TESTING [facility] Start: 1996 PAP TESTING PAP TESTING [facility] Start: 1994 Urine microalbumin profile DTAP,TDAP ,TD (1 - Tdap) [facility] Start: 1993 HEPATITIS C SCREENING HEPATITIS C SC REENING [facility] Start: 1993 HIV SCREENING HIV SCREENING [facility] Start: 1975 HEPATITIS B (1 of 3 - 3-dose series) HEPATITIS B (1 of 3 - 3-dose series) [facility] Alanine aminotransfe rase [Enzymatic activity/volume] in Serum or Plasma [facility] Albumin [Mass/volume ] in Serum or Plasma [facility] Alkaline phosphatase [Enzymatic activity/volume] in Serum or Plasma [facility] Anion gap in Serum o r Plasma [facility] Bilirubin, total measurement [facility] BUN/Creatinine ratio [facility] Calcium [Mass/volume ] in Serum or Plasma [facility] Carbon dioxide, tota l [Moles/volume] in Central venous blood [facility] CBC W Auto Different ial panel - Blood [facility] Cholesterol [Mass/vo lume] in Serum or Plasma [facility] Cholesterol in HDL [Mass/volume] in Serum or Plasma [facility] Colonoscopy [facility] Creatinine [Mass/vol ume] in Serum or Plasma [facility] Elastase, pancreatic (el-1), fecal; quantitative [facility] Elastase.pancreatic [Presence] in Stool [facility] Erythrocyte mean corpuscular volume determination [facility] Glucose [Mass/volume ] in Serum or Plasma [facility] Hematocrit [Volume Fraction] of Blood [facility] Hemoglobin [Mass/vol ume] in Blood [facility] Lactoferrin [Presenc e] in Stool by Immunoassay [facility] Leukocytes [#/volume ] in Blood [facility] Lipid 1996 panel - S latrell or Plasma [facility] Low density lipoprot ein cholesterol measurement [facility] Mean corpuscular hemoglobin concentration determination [facility] Mean corpuscular hemoglobin determination [facility] Measurement of renal function [facility] Neutrophil count [facility] Neutrophil percent differential count [facility] Patient referral [facility] Work Phone: Platelets [#/volume] in Blood [facility] Polysomnography [facility] Potassium measurement [facility] Protein measurement [facility] Protein measurement [facility] Red blood cell count [facility] Red cell distributio n width determination [facility] Serum chloride measurement [facility] Sodium measurement [facility] T4 free measurement [facility] Thyroid stimulating hormone measurement [facility] Total cholesterol:HD L ratio measurement [facility] Total protein measurement [facility] Triglycerides measurement [facility] Urea nitrogen [Mass/volume] in Serum or Plasma [facility] End: 08-25-2023 US KIDNEY/BLADDER US KIDNEY/BLADDER Radiology STAT UTI symptoms 1 Occurrences starting 07/26/2022 until 08/25/2023 [facility] Work Phone: Comment on above: 1 Occurrences starti ng 07/26/2022 until 08/25/2023 VLDL cholesterol measurement [facility] Immunizations Immunization Date Immunization Notes Care Provider Kaylen estevez 02-23-2024 influenza, injectabl e, madin rey canine kidney, preservative free Dr. Garfield Pearce MD Work Phone: [facility] 01-07-2023 influenza, injectabl e, quadrivalent, preservative free Dr. Garfield Pearce Work Phone: [facility] 03-24-2022 influenza, injectabl e, quadrivalent, preservative free Dr. Garfield Pearce Work Phone: [facility] 03-03-2021 Covid (Pfizer) Dr. Garfield Pearce Work Phone: [facility] 06-21-2020 Covid (Pfizer) Dr. Garfield Pearce Work Phone: [facility] 05-31-2020 Covid (Pfizer) Dr. Garfield Pearce Work Phone: [facility] 02-06-2019 influenza, injectabl e, quadrivalent, preservative free Bin Acevedo APRN.CNP Work Phone: [facility] Payers Date Payer Category Payer Self-pay [id number] 2019 Unknown MMO MMO [employer] PPO [id number] 2019-Present [phone] [address] [place] [address] PPO [id number] 2012 [id number] Unknown [id number] Unknown [id number] Social History Date Type Detail Facility Start: 09-08-2021 End: 07-15-2023 Tobacco smoking status NHIS Unknown if ever smoked [facility] Start: 11-28-2018 With Family [facility] Start: 1975 Sex Assigned At Female [facility] Start: 04-26-2018 End: 07-15-2023 Tobacco smoking status NHIS Never smoked tobacco [facility] Work Phone: Start: 04-26-2018 Tobacco use and exposure Smokeless tobacco non-user [facility] Work Phone: Start: 04-26-2018 Alcohol intake Not Asked [facility] Start: 1975 Sex Assigned At Not on file [facility] NEGATED: Highlighted row [facility] Goals Date Patient Goal Desired Activity /State Mental Status Date Assessment Result Facility 03-25-2023 Cognitive function Voice/Name [facility] Work Phone: Clinical Notes 06-03-2021 to 08-02-2024 Note Date & Type Note Facility 08-02-2024 Evaluation note Diagnosis Onset Date Resolution Labial cyst acute August 02, 2 025 8:28am [facility] Work Phone: [phone] Procedure [facility] 03-25-2023 Procedure [facility]05-02-2023 Miscellaneous Notes* Telephone Encounter - Bin Acevedo APRN.CNP - 08/04/2022 9:39 AM EDT Patient did not review [employer] message. Please reach out and discuss following This message is to inform you that the patient has not yet read the following message. (Notification date: July 28, 2022) Results From Bin Acevedo APRN.CNP To Matilde Vasquez Sent and Delivered 07/27/2022 4:12 PM Hi Matilde, Your urine culture has just resulted. It has mixed bacteria, which can occur at time of collection. If symptoms are improving, you can continue antibiotic. Please follow up with your primary care doctor as you had blood in your urine. [facility] [place] MyChart User Last Read On Matilde Vasquez Not Read [facility] NoteHNO ID: [id number] Author: Bin Buckley RDMS Service: ? Author Type: Design Leader Type: Progress Notes Filed: 07/27/2022 1:34 PM Note Text: Radiology Service Progress Note PATIENT NAME: Matilde Vasquez DATE OF SERVICE: July 27, 2022 TIME: 1:34 PM PATIENT IDENTITY VERIFICATION COMPLETED USING TWO (2) IDENTIFIERS: Name and Date of confirmed by patient verbally. FALL SCREENING: Has the patient had 2 falls in the last year or 1 fall with injury or currently using an Ambulatory Assistive Device (Walker, Cane, Wheelchair, Crutches, etc.)? No PATIENT GENDER DATA: Female. status: : No status: NO. PATIENT RELEVANT IMPLANT DATA REVIEWED: Not Applicable RADIOLOGY DEPARTMENT: Ultrasound PERIPHERAL IV DATA: Not applicable SIGNED BY: Bin Buckley RDMS RVT July 27, 2022 1:34 [facility]04-23-2023 NoteHNO ID: [id number] Author: Bin Acevedo APRN.CNP Service: ? Author Type: Nurse Practitioner Type: Progress Notes Filed: 07/26/2022 11:48 AM Note Text: This note was created using [employer]. Subjective Matilde Vasquez is a 47 year old female. 47 year old female with no PMH presents with complaints of illness. Onset yesterday evening Just something felt off Acute onset today at 1000 +lower left back Denies trauma or injury to her back. +urinary frequency +urgency +burn feeling in pressure +feeling flushed. Denies N/V/D Denies skin rash or lesions. Denies recent coitus Denies vaginal discharge. Denies vaginal bleeding. The history is provided by the patient. No car blocker was used. UTI This is a new problem. The current episode started yesterday. The problem occurs every urination. The problem has been gradually worsening. The pain is at a severity of 4/10. The pain is moderate. There has been no fever. Sexually active: denies recent sexual activity. Associated symptoms include vomiting, frequency and urgency. Pertinent negatives include no chills, no sweats, no nausea, no discharge, no hematuria and no hesitancy. She has tried nothing for the symptoms. Her past medical history does not include kidney stones, single kidney, urological procedure, recurrent UTIs, urinary stasis or catheterization. PAST MEDICAL HISTORY Diagnosis Date NEGATIVE MEDICAL HISTORY PAST SURGICAL HISTORY Procedure Laterality Date SECTION HX x3 LAPAROSCOPIC CHOLEYCYSTECTOMY ALLERGIES Patient has no known allergies. MEDICATIONS sulfamethoxazole-trimethoprim (BACTRIM DS) 800-160 mg per tablet Take 1 tablet by mouth twice daily for 5 days. phenazopyridine (PYRIDIUM) 200 mg tablet Take 1 tablet by mouth three times daily as needed. No family history on file. Social History Tobacco Use Smoking status: Never Smokeless tobacco: Never Review of Systems Constitutional: Negative for chills. Eyes: Negative for discharge and itching. Respiratory: Negative for apnea, cough, choking and chest tightness. Cardiovascular: Negative for chest pain, palpitations and leg swelling. Gastrointestinal: Positive for vomiting. Negative for abdominal pain, diarrhea and nausea. Genitourinary: Positive for dysuria, frequency and urgency. Negative for hematuria and hesitancy. Musculoskeletal: Negative for arthralgias, back pain, gait problem and joint swelling. Skin: Negative for color change, pallor, rash and wound. Allergic/Immunologic: Negative for environmental allergies, food allergies and immunocompromised state. Neurological: Negative for dizziness and facial asymmetry. Hematological: Negative for adenopathy. Does not bruise/bleed easily. Psychiatric/Behavioral: Negative for agitation and behavioral problems. Objective BP 138/90 Pulse 81 Temp 36.6 ?C (97.9 ?F) Resp 18 Wt 97.5 kg (215 lb) LMP 06/22/2016 SpO2 99% Physical Exam Vitals and nursing note reviewed. Constitutional: General: She is not in acute distress. Appearance: Normal appearance. She is normal weight. She is not ill-appearing, toxic-appearing or diaphoretic. HENT: Head: Normocephalic and atraumatic. Right Ear: Ear canal and external ear normal. Left Ear: Ear canal and external ear normal. Nose: Nose normal. No congestion or rhinorrhea. Mouth/Throat: Mouth: Mucous membranes are moist. Pharynx: No oropharyngeal exudate or posterior oropharyngeal erythema. Eyes: General: Right eye: No discharge. Left eye: No discharge. Extraocular Movements: Extraocular movements intact. Conjunctiva/sclera: Conjunctivae normal. Pupils: Pupils are equal, round, and reactive to light. Cardiovascular: Rate and Rhythm: Normal rate and regular rhythm. Pulses: Normal pulses. Heart sounds: Normal heart sounds. No murmur heard. No friction rub. Pulmonary: Effort: Pulmonary effort is normal. No respiratory distress. Breath sounds: Normal breath sounds. No stridor. No wheezing, rhonchi or rales. Chest: Chest wall: No tenderness. Abdominal: General: Abdomen is flat. There is no distension. Palpations: Abdomen is soft. There is no mass. Tenderness: There is no abdominal tenderness. There is no right CVA tenderness, left CVA tenderness, guarding or rebound. Hernia: No hernia is present. Musculoskeletal: General: No swelling, tenderness, deformity or signs of injury. Normal range of motion. Cervical back: Normal range of motion and neck supple. No rigidity. Right lower leg: No edema. Left lower leg: No edema. Lymphadenopathy: Cervical: No cervical adenopathy. Skin: General: Skin is warm and dry. Capillary Refill: Capillary refill takes less than 2 seconds. Coloration: Skin is not jaundiced or pale. Findings: No bruising, erythema, lesion or rash. Neurological: General: No focal deficit present. Mental Status: She is alert and oriented to person, (more content not included)...[facility]04-23-2023 History of Present illness Narrative* Bin Acevedo APRN.[facility] - 07/26/2022 11:30 AM EDT This note was created using [employer]. Meek Vasquez is a 47 year old female. 47 year old female with no PMH presents with complaints of illness. Onset yesterday evening Just something felt off Acute onset today at 1000 +lower left back Denies trauma or injury to her back. +urinary frequency +urgency +burn feeling in pressure +feeling flushed. Denies N/V/D Denies skin rash or lesions. Denies recent coitus Denies vaginal discharge. Denies vaginal bleeding. The history is provided by the patient. No car blocker was used. UTI This is a new problem. The current episode started yesterday. The problem occurs every urination. The problem has been gradually worsening. The pain is at a severity of 4/10. The pain is moderate. There has been no fever. Sexually active: denies recent sexual activity. Associated symptoms include vomiting, frequency and urgency. Pertinent negatives include no chills, no sweats, no nausea, no discharge, no hematuria and no hesitancy. She has tried nothing for the symptoms. Her past medical history does not include kidney stones, single kidney, urological procedure, recurrent UTIs, urinary stasis or catheterization. PAST MEDICAL HISTORY Diagnosis Date NEGATIVE MEDICAL HISTORY PAST SURGICAL HISTORY Procedure Laterality Date SECTION HX x3 LAPAROSCOPIC CHOLEYCYSTECTOMY ALLERGIES Patient has no known allergies. MEDICATIONS sulfamethoxazole-trimethoprim (BACTRIM DS) 800-160 mg per tablet Take 1 tablet by mouth twice dailyfor 5 days. phenazopyridine (PYRIDIUM) 200 mg tablet Take 1 tablet by mouth three times daily as needed. No family history on file. Social History Tobacco Use Smoking status: Never Smokeless tobacco: Never Review of Systems Constitutional: Negative for chills. Eyes: Negative for discharge and itching. Respiratory: Negative for apnea, cough, choking and chest tightness. Cardiovascular: Negative for chest pain, palpitations and leg swelling. Gastrointestinal: Positive for vomiting. Negative for abdominal pain, diarrhea and nausea. Genitourinary: Positive for dysuria, frequency and urgency. Negative for hematuria and hesitancy. Musculoskeletal: Negative for arthralgias, back pain, gait problem and joint swelling. Skin: Negative for color change, pallor, rash and wound. Allergic/Immunologic: Negative for environmental allergies, food allergies and immunocompromised state. Neurological: Negative for dizziness and facial asymmetry. Hematological: Negative for adenopathy. Does not bruise/bleed easily. Psychiatric/Behavioral: Negative for agitation and behavioral problems. Objective BP 138/90 Pulse 81 Temp 36.6 C (97.9 F) Resp 18 Wt 97.5 kg (215 lb) LMP 06/22/2016 [id number]% Physical Exam Vitals and nursing note reviewed. Constitutional: General: She is not in acute distress. Appearance: Normal appearance. She is normal weight. She is not ill-appearing, toxic-appearing or diaphoretic. HENT: Head: Normocephalic and atraumatic. Right Ear: Ear canal and external ear normal. Left Ear: Ear canal and external ear normal. Nose: Nose normal. No congestion or rhinorrhea. Mouth/Throat: Mouth: Mucous membranes are moist. Pharynx: No oropharyngeal exudate or posterior oropharyngeal erythema. Eyes: General: Right eye: No discharge. Left eye: No discharge. Extraocular Movements: Extraocular movements intact. Conjunctiva/sclera: Conjunctivae normal. Pupils: Pupils are equal, round, and reactive to light. Cardiovascular: Rate and Rhythm: Normal rate and regular rhythm. Pulses: Normal pulses. Heart sounds: Normal heart sounds. No murmur heard. No friction rub. Pulmonary: Effort: Pulmonary effort is normal. No respiratory distress. Breath sounds: Normal breath sounds. No stridor. No wheezing, rhonchi or rales. Chest: Chest wall: No tenderness. Abdominal: General: Abdomen is flat. There is no distension. Palpations: Abdomen is soft. There is no mass. Tenderness: There is no abdominal tenderness. There is no right CVA tenderness, left CVA tenderness, guarding or rebound. Hernia: No hernia is present. Musculoskeletal: General: No swelling, tenderness, deformity or signs of injury. Normal range of motion. Cervical back: Normal range of motion and neck supple. No rigidity. Right lower leg: No edema. Left lower leg: No edema. Lymphadenopathy: Cervical: No cervical adenopathy. Skin: General: Skin is warm and dry. Capillary Refill: Capillary refill takes less than 2 seconds. Coloration: Skin is not jaundiced or pale. Findings: No bruising, erythema, lesion or rash. Neurological: General: No focal deficit present. Mental Status: She is alert and oriented to person, place, and time. Cranial Nerves: No cranial nerve deficit. Sensory: No sensory deficit. Motor: No weakness. Coordination: Coordination normal. Gait: Gait normal. Psychiatric: Mood and Affect: Mood normal. Behavior: Behavior normal. Thought Content: Thought content normal. Judgment: Judgment normal. Assessment and Plan ASSESSMENT/PLAN: 1. UTI symptoms - ICD9: 788.99, ICD10: R39.9 (primary diagnosis) X 1 day - UA DIP, URINE (POC)- +moderate blood +ketones - URINE CULTURE-pending - US KIDNEY/BLADDER-obtaining tomorrow, PSS schedules at discharge RX Bactrim and Pyridium Increase fluids Follow up with PCP 2. Left flank pain - ICD9: 789.09, ICD10: R10.9 Etiology unclear Differential Diagnosis includes Kidney stones/colic, Bladder distention, Cystitis, and musculoskeletal - Antibiotic treatment with Bactrim DS BID - Work up with US kidney and bladder - Follow up in 3 days or sooner if worsening of symptoms Discussed red flags and reasons to seek ED> Bin Acevedo APRN.ARCHITECTURAL REPRESENTATIVE documented in this encounter[facility] NotePap Smear Specimen AdequacyMarch 2021 5:17pmCommentSatisfactory for evaluation. No endocervical component is identified.[facility] A#[id number] Work Phone: Comment on above:Satisfactory for evaluation. No endocervical component is identified.Evaluation note* Diagnosis Onset Date Resolution Status Migraine chronic Daigle's palsy acute Viral syndrome acute Anxiety acute Anxiety and depression chron ic Migraine [facility] Work Phone: Evaluation note* Diagnosis UTI symptoms- Primary Other symptoms involving urinary system Left flank pain Abdominal pain, unspecified site documented [facility] this encounter [facility] Diagnosis Onset Date Resolution Status Health care maintenance acut e Palpitation acute Skin mole acute Chronic diarrhea chronic Hypertension chronic Migraine chronic [facility] Work Phone: Evaluation note* Diagnosis Onset Date Resolution Status Health care maintenance acut e Palpitation acute Skin mole acute Chronic diarrhea chronic Hypertension chronic Migraine chronic Encounter for screening for malignant neoplasm of colo n acute [facility] Work Phone: Evaluation note* Diagnosis Onset Date Resolution Status Encounter for screening for malignant neoplasm of colo n acute Palpitation acute Skin mole acute GERD (gastroesophageal reflux disease) chronic Irritable bowel syndrome with diarrhea chronic Migraine chronic Anxiety and depression chron ic Chronic diarrhea chronic GERD (gastroesophageal reflux disease) chronic Hypertension chronic [facility] Work Phone: Evaluation note* Diagnosis Onset Date Resolution Status Palpitation acute Skin mole acute GERD (gastroesophageal reflux disease) chronic Irritable bowel syndrome with diarrhea chronic Migraine chronic Anxiety and depression chron ic Chronic diarrhea chronic GERD (gastroesophageal reflux disease) chronic Hypertension chronic [facility] Work Phone: History and physical note Author Louie Friend [facility] March 25, 2023 10:44am Note Date/Time March 25, 2023 10:45am [facility] Medical Records Department [address] [place] [address] History & Physical Exam 03/25/23 1043 MR#: [id number] Acct: [id number] Name: MATILDE VASQUEZ Rep #:[id number] 2 : 1975 47 From: Louie Vera DO PCP: Dr. Garfield Pearce MD Status:R [facility] Location: [place] [address] HPI - General General Date of Admission: 03/25/23 Date of Service: 03/25/23 Chief Complaint: Screening colonoscopy HPI Narrative MATILDE VASQUEZ, is a 47 F who presents today for screening colonoscopy. She is not having abdominal pain. She denied any cramping. She denied of any chest pain or shortness of breath. Overall she is in very good health. [facility] Medical History (Updated 03/23/23 @ 14:49 by Kaia Kulkarni) Back pain Daigle's palsy Chest pain Chronic diarrhea Colon cancer screening Diarrhea Difficulty balancing Family hx of colon cancer Gastric reflux Gastroenteritis due to food toxin Gestational diabetes Hay fever Health care maintenance Heartburn History of IBS Hypertension IBS (irritable bowel syndrome) Migraines Non-smoker Palpitation Skin mole Viral syndrome Wears glasses Home Medications loperamide 2 mg capsule (Imodium A-D) 2 mg PO Q6H PRN loose stool 11/07/19 [History Last Taken Unknown] blood pressure monitor #1 ea 05/19/21 [Rx Last Taken Unknown] hydroxyzine HCl 50 mg tablet 50 mg PO Q8H PRN anxiety #30 tabs 05/08/22 [Rx Last Taken Unknown] rizatriptan 10 mg tablet See Rx Instructions PO .COMPLEX #14 tabs 01/07/23 [Rx Last Taken Unknown] Allergy/AdvReac Type Severity Reaction Status Date / Time acetaminophen [From Vicodin] AdvReac Vomiting Verified 01/14/23 11:33 hydrocodone bitartrate AdvReac Vomiting Verified 01/14/23 11:33 [From Vicodin] Family History (Updated 01/14/23 @ 11:33 by Akiko Olivas) Grandfather Colon cancer, Onset Age: 80 Grandmother Cancer ovarian Father Diabetes Surgical History (Updated 01/14/23 @ 11:32 by Akiko Olivas) History of cholecystectomy Hx of section Hx of colonoscopy Social History household members: spouse, children and other details: Oldest Son - [employer], [place] - 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, 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 [employer] number of children: 3 current occupational status: employed current occupation: [employer] Smoking Status: Never smoker alcohol intake: current alcohol intake frequency: holidays/special occasions only substance use type: does not use what type of physical activity do you participate in: none seatbelt use: always do you feel safe at home: Yes additional social history: - [employer] Review of Systems ROS Unobtainable: other Constitutional Constitutional: Denies fatigue, fever(s), poor appetite, weight gain or weight loss ENT HEENT: Denies mouth lesions Cardiovascular Cardiovascular: Denies abdominal bloating, abdominal edema or abdominal pain Respiratory/Chest Respiratory/Chest: Denies change in mental status, change in phlegm color, chestcongestion or chest tightness Gastrointestinal Gastrointestinal: Denies belching, bloating, change in bowel habits, change in stool character, chewing difficulty, coffee ground emesis, constipation, cramping, diarrhea, dyspepsia, dysphagia, early satiety, excessive flatus, fecalincontinence, heartburn, hematemesis, hematochezia, hemorrhoids, loose stools, melena, nausea, odynophagia, rectal bleeding, tenesmus, vomiting or weight changes Genitourinary Genitourinary: Denies abdominal discomfort, burning urination or itching Musculoskeletal Musculoskeletal: Reports as per HPI; Denies muscle weakness or myalgias Integumentary Integumentary: Denies jaundice Neurologic Neurologic: Denies lack of coordination or weakness Psychiatric Psychiatric: Denies confusion, depression, memory loss, mood swings, paranoia orsuicidal ideation Endocrine Endocrinology: Denies systems reviewed and no addt'l complaints, except as documented Hematologic/Lymphatic Hematologic/Lymphatic: Denies anemia, easy bleeding, easy bruising or lymphadenopathy Allergic/Immunologic Allergic/Immunologic: Denies systems reviewed and no addt'l complaints, except as documented Vital Signs Vital Signs Vital Signs: 03/25/23 09:33 03/25/23 09:33 Temperature 97 F L Temperature Source Temporal Pulse Rate 78 Respiratory Rate 18 Respiratory Pattern Normal Blood Pressure 129/70 H Blood Pressure Mean 89 Blood Pressure Source Monitor Blood Pressure Position Semi-Fowlers Blood Pressure Location Right Arm Pulse Ox 96 Oxygen Delivery Method Room Air Weight Weight: 227 lb 6.4 oz Body Mass Index (BMI) 41.5 Physical Exam Const alert General Appearance: cooperative Orientation / Consciousness: oriented to person HEENT hearing grossly normal bilaterally Head and Scalp: normal to inspection Face and Sinus: face symmetric Nose: external nose normal Mouth: oral and palatal mucosa normal Eyes conjunctivae normal General Eye: normal appearance of both eyes Neck full ROM General: normal visual inspection Lymph Lymphatic: no lymphadenopathy noted Chest inspection of chest normal and palpation of chest normal Chest: symmetrical chest wall rise Resp normal respiratory effort Effort and Inspection: able to speak in complete sentences Cardio regular rate GI non-distended Percussion: normal to percussion Rectal Exam: deferred Neuro Speech: speech normal Gait (Neuro): normal gait Assessment & Plan Assessment/Plan (1) Encounter for screening for malignant neoplasm of colon: PLAN: She was explained alternatives, risk, benefits including not withstanding bleeding, infection, sepsis, perforation, need for emergent surgery and . She will have an ASA of 3. 03/25/23 1044 <Electronically signed by Louie Vera DO> Cosigner Signature (if applicable): CC: Dr. Garfield Pearce MD; Louie Vera DO~ Signed [facility] Work Phone: Reason for referral (narrative)* Diagnostic Procedure Only (Urgent) - Authorized Specialty Diagnoses / Procedures Referred By Contmarisol t Referred To Contact US IMAGING Diagnoses UTI symptoms Procedures US KIDNEY/BLADDER US RETROPERITONEAL REAL TIME W/IMAGE COMPLETE Bin Acevedo, ASP WEB DEVELOPER.ARCHITECTURAL REPRESENTATIVE [address] [place] [address] Us Imaging Referral ID Status Reason Start Date Expiration Date Visits Requested Visits Authorized [id number] Authorized Auto-Generat ed Referral 07/26/2022 08/25/2023 1 1 [facility]Reason for referral (narrative)No reason for referral information availableFranciscan Health [facility] Work Phone: Chief Complaint and Reason for Visit Chief Complaint 2 M FU possible Daigle's palsy 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) 4 M FU SCREENING Reason for Visit Migraine Daigle's palsy Viral syndrome Anxiety Anxiety and depression Migraine Chief Complaint 6 M FU Amb Documentation SCREEN Reason for Visit Health care maintena nce Palpitation Skin mole Chronic diarrhea Hypertension Migraine Chief Complaint 6 M FU Amb Documentation SCREEN Reason for Visit Health care maintena nce Palpitation Skin mole Chronic diarrhea Hypertension Migraine Encounter for screening for malignant neoplasm of colon Chief Complaint 3 M FU 3 M FU Reason for Visit Encounter for screen ing for malignant neoplasm of colon Palpitation Skin mole GERD (gastroesophageal reflux disease) Irritable bowel syndrome with diarrhea Migraine Anxiety and depression Chronic diarrhea GERD (gastroesophageal reflux disease) Hypertension Chief Complaint 3 M FU 3 M FU Reason for Visit Palpitation Skin mole GERD (gastroesophageal reflux disease) Irritable bowel syndrome with diarrhea Migraine Anxiety and depression Chronic diarrhea GERD (gastroesophageal reflux disease) Hypertension Chief Complaint Admit Date Labial lump August 02, 2024 8:2 8am 6 M FU October 30, 2024 8:09 am Reason for Visit Admit Date Labial cyst August 02, 2024 8:2 8am Family History Relationship Condition Age at Onset Recorded Date/T елена grandfather Malignant neoplasm of colon Unknown grandmother Malignant neoplasm Unknown father Diabetes mellitus Unknown Relationship Condition Age at Onset Recorded Date/T елена grandfather Malignant neoplasm of colon 80 grandmother Malignant neoplasm Unknown father Diabetes mellitus Unknown Advance Directives Advance Directive Response Recorded Date/ Time Advance Directives No March 3:40pm Living Will No March 19, 021 3:40pm Power of Greenhouse Superintendent No March 19, 2021 3:40pm Advance Directive Response Recorded Date/ Time Advance Directives No November 03 023 9:33am Living Will No November 03, 2022 9:33am Power of Greenhouse Superintendent No November 03 9:33am Advance Directive Response Recorded Date/ Time Advance Directives No November 03 9:33am Living Will No March 23 2:44pm Power of Greenhouse Superintendent No March 23, 2023 2:44pm Advance Directive Response Recorded Date/ Time Advance Directives No November 03 023 10:33am Living Will No March 23 3:44pm Power of Greenhouse Superintendent No March 23, 2023 3:44pm Advance Directive Response Recorded Date/ Time Advance Directives No November 03 10:33am Summary Purpose Additional Source Comments Goals (unrecognized section and content) Goals may be documented in a n alternate sectionGoals may be documented in an alternate sectionGoals may be documented in an alternate sectionGoals may be documented in an alternate section Source Comments (unrecognize d section and content) In the event this informatio n is protected by the Federal Confidentiality of Alcohol and Drug Abuse Patient Records regulations: The Federal rules restrict any use of the information to criminally investigate or prosecute any alcohol or drug abuse patient.[facility] Hospital[facility] the event this information is protected by the Federal Confidentiality of Alcohol and Drug Abuse Patient Records regulations: The Federal rules restrict any use of the information to criminally investigate or prosecute any alcohol or drug abuse patient.[facility] Reason for Visit (unrecogniz ed section and content) Reason Comments Pain, Back With frequency of ur ination Reason Comments Results Care Teams (unrecognized sec tion and content) Labor Expediter Relationship Specialty Start Date End Date Garfield Pearce MD [address] [place] [address] PCP - General Internal Medicine 02/02/20 Labor Expediter Relationship Specialty Start Date End Date Garfield Pearce MD [address] [place] [address] PCP - General Internal Medicine 02/02/20 Team Status: Active Member Role Status Dates Dr. Florian Colbert MD Family Provider Active Dr. Garfield Pearce MD Primary Care Provider Active Team Status: Inactive Member Role Status Dates Dr. Garfield Pearce MD Primary Care P rocarlton, Attending Provider, Referring Provider Active Team Status: Active Member Role Status Dates Dr. Garfield Pearce MD Primary Care Provider Active Akiko Olivas Attending Provider Active Team Status: Active Member Role Status Dates Dr. Garfield Pearce MD Primary Care Provider, Refer ring Provider Active Dr. Louie Vera DO Attending Provider, Other Prov ider Active Team Status: Inactive Member Role Status Dates Dr. Garfield Pearce MD Primary Care Provider, Refer ring Provider Active Dr. Louie Vera DO Attending Provider Active Team Status: Active Member Role Status Dates Dr. Garfield Pearce MD Primary Care P rovimookie, Attending Provider, Referring Provider Active Team Status: Active Member Role/Relationship Status Dates Dr. Florian Colbert MD Family Provider Active Dr. Garfield Pearce MD Primary Care Provider Active Team Status: Inactive Member Role/Relationship Status Dates Dr. Garfield Pearce MD Primary Care Provider Active Start: August 02, 2024 End: August 02, 2024 Dr. Garfield Pearce MD Referring Provider Active Start: August 02, 2024 End: August 02, 2024 NAZANIN Ramos Attending Provider Active Start: August 02, 2024 End: August 02, 2024 Team Status: Inactive Member Role/Relationship Status Dates Dr. Garfield Pearce MD Primary Care Provider Active Start: October 30, 2024 End: October 30, 2024 Dr. Garfield Peacre MD Attending Provider Active Start: October 30, 2024 End: October 30, 2024 Dr. Garfield Pearce MD Referring Provider Active Start: October 30, 2024 End: October 30, 2024 Team Status: Active Member Role/Relationship Status Dates Dr. Garfield Pearce MD Primary Care Provider Active Start: October 30, 2024 Dr. Garfield Pearce MD Attending Provider Active Start: October 30, 2024 Dr. Garfield Pearce MD Referring Provider Active Start: October 30, 2024 INFORMATION SOURCE (unrecogn ized section and content) DATE CREATED AUTHOR 08/05/2022 [facility] DATE CREATED AUTHOR AUTHOR'S ORGANIZ ATION 08/03/[address] [facility] FOR RECORDS PERTAINING TO PATIENTS WHO ARE OR HAVE BEEN ENROLLED IN A CHEMICAL DEPENDENCY/SUBSTANCEABUSE PROGRAM, SOME INFORMATION MAY BE OMITTED. This clinical summary was aggregated from multiple sources. Caution should be exercised in using it in the provision of clinical care. This summary normalizes information from multiple sources, and as a consequence, information in this document may materially change the coding, format and clinical context of patient data. In addition, data may be omitted in some cases. CLINICAL DECISIONS SHOULD BE BASED ON THE PRIMARY CLINICAL RECORDS. [employer] provides no warranty or guarantee of the accuracy or completeness of information in this document.
[2024-10-30 12:41] LABS: Hematocrit 38.9 % (37-47); Hemoglobin 12.9 g/dL (12.0-15.0); Immature Granulocytes Count 0.030 X10^3/uL (0.0-0.0); Mean Corp Hgb Conc 33.2 g/dL (32-36); Mean Corpuscular Volume 86.3 fL (81-99); Mean Platelet Vol. 10.4 fl (6.2-12.0); NRBC Flagged by Analyzer 0 % (0-5); Platelet Count 285 K/mm3 (150-450); RBC Distribution Width CV 14.3 % (11.6-14.6); RBC Distribution Width SD 45.1 fl (35.1-43.9); Red Blood Count 4.51 M/mm3 (4.2-5.4); White Blood Count 9.5 K/mm3 (4.4-11.0)
[2024-10-30 13:40] LABS: AST(SGOT) 16 U/L (<=31); Alanine Aminotransfer ALT/SGPT 14 U/L (<=34); Albumin, Serum 4.1 g/dL (3.5-5.0); Alkaline Phosphatase 56 U/L (35-104); Anion Gap 13 (5-15); BUN 11 mg/dL (4-19); BUN/Creat Ratio 13.1 RATIO (10-20); Calcium,Total 8.9 mg/dL (7.6-11.0); Carbon Dioxide 23.2 mmol/L (21.0-32.0); Chloride 105 mmol/L (98-108); Cholesterol 173 mg/dL (<=200); Globulin 3.0 g/dL (2.2-4.2); Glucose 103 mg/dL (70-99); Low Density Lipoprotein Calc. 94 mg/dL; Potassium 4.2 mmol/L (3.3-5.1); Triglycerides 180 mg/dL; Very Low Density Lipoprotein 36 mg/dL (5-40); cholesterol:hdl ratio screen 4.00
== END | disposition home or self-care (01) ==
LOC: BIMLAB 09:02
PROVIDERS: PCP Internal Medicine; Referring Provider Internal Medicine; Visit Provider Internal Medicine
DX: I10 Essential (primary) hypertension (principal); R73.9 Hyperglycemia, unspecified
CPT/HCPCS: 36415; 80053; 80061; 83036; 85025

== ENCOUNTER → 2024-11-15 | Outpatient (CLI) | payer OTHER, SELFPAY | END | disposition home or self-care (01) | LOC: SL 13:13 | PROVIDERS: PCP Internal Medicine; Referring Provider Internal Medicine; Visit Provider Internal Medicine | DX: G47.10 Hypersomnia, unspecified (principal) | CPT/HCPCS: 95806 ==

== ENCOUNTER → 2025-02-08 | Outpatient (CLI) | payer OTHER, SELFPAY | END | disposition home or self-care (01) | LOC: MTLAB 15:38 | PROVIDERS: PCP Internal Medicine; Referring Provider Internal Medicine; Visit Provider Internal Medicine | DX: N92.6 Irregular menstruation, unspecified (principal) | CPT/HCPCS: 36415; 84439; 84443 ==